=== PATIENT | female | born 1955 | race African-American/Black ===

== ENCOUNTER 2017-02-27 11:53 | Emergency (ER) | payer MEDICAID ==
[~2017-02-27] VITALS: Ht 175.3 cm; Wt 54.4 kg
[2017-02-27] MEDS ORDERED: ASPIR-LOW81 MG ORAL (12:30)
[2017-02-27] MEDS ORDERED: [UNRECOGNIZED DRUG - REMARK] SQ (12:30)
[2017-02-27 12:31] VITALS: BP 123/84
[2017-02-27] MEDS ORDERED: Tylenol #3 tab (300mg/30mg) ORAL ONE (12:45)
[2017-02-27] MEDS ORDERED: XOLIDO118 ML TP (12:52)
[2017-02-27] MEDS ORDERED: ACETAMINOPHEN-1 EAC1 ORAL (12:52)
[2017-02-27] MEDS ORDERED: ZOVIRAX800 MG ORAL (12:52)
[2017-02-27 13:17] VITALS: BP 159/93
--- NOTE | 2017-02-27 16:30 | Emergency Room Report ---
History of Present Illness General Chief Complaint: Skin Rash/Abscess Source: Patient Present Illness HPI The patient is a 61-year-old female presenting for rash. She states that she noticed pain and a rash to the left abdomen and back 5 days prior. It has not been worsening pain is an 8/10 burning sensation and does not radiate. Worse with light touch. She has applied calamine lotion which has not helped. She admits to a history of chickenpox as a child. She denies any other symptoms including nausea, vomiting, fever, chills Allergies: Coded Allergies: No Known Allergies (Unverified , 02/27/17) Patient History Past Medical History: see triage record Pertinent Family History: none Reviewed Nursing Documentation: PMH: Agreed, PSxH: Agreed Nursing Documentation-PMH Hx Diabetes: Yes Review of Systems All Other Systems: negative except mentioned in HPI Physical Exam Vital Signs Date Time Temp Pulse Resp B/P (MAP) Pulse Ox O2 Delivery O2 Flow Rate FiO2 02/27/17 12:23 98.2 86 16 123/84 95 Room Air Sp02 EP Interpretation: reviewed, normal General Appearance: no apparent distress, alert, GCS 15, non-toxic Head: normocephalic, atraumatic Eyes: bilateral eye normal inspection, bilateral eye PERRL ENT: hearing grossly normal, normal pharynx, no angioedema, normal voice Neck: full range of motion, supple/symm/no masses Respiratory: chest non-tender, lungs clear, normal breath sounds, speaking full sentences Musculoskeletal: back normal, gait/station normal, normal range of motion Neurologic: alert, oriented x3, responsive, motor strength/tone normal, sensory intact, speech normal Psychiatric: judgement/insight normal, memory normal, mood/affect normal, no suicidal/homicidal ideation Skin: other - vesicles of the L abdomen and L back. Does not cross midline. TTP. Lymphatic: no adenopathy Medical Decision Making PA Attestation Dr. Larios is my supervising physician. Patient management was discussed with my supervising physician Diagnostic Impression: Primary Impression: Shingles outbreak Qualified Codes: B02.9 - Zoster without complications ER Course The patient is a 61-year-old female presenting for possible shingles outbreak Ddx considered include but not limited to insect bite, shingles, contact dermatitis, eczema, cellulitis, among others PE: Multiple vesicles which extend from the left abdomen to the left back. Tenderness with soft palpation. Does not cross midline. The patient will be treated with a prescription for acyclovir, pain medication, and topical lidocaine. ER precautions are given Last Vital Signs Date Time Temp Pulse Resp B/P (MAP) Pulse Ox O2 Delivery O2 Flow Rate FiO2 02/27/17 13:17 71 18 159/93 100 Room Air 02/27/17 12:31 98.2 Status: improved Disposition: HOME, SELF-CARE Condition: Improved Scripts Acyclovir* (ZOVIRAX*) 800 Mg Tablet 800 MG ORAL Q4HR for 7 Days, CAP 0 Refills Prov: SUPIRYA VILLANUEVA.A. 02/27/17 Lidocaine HCl (Xolido) 118 Ml Cream.ml. 1 APPLIC TP TID, #118 ML Prov: SUPRIYA VILLANUEVA P.A. 02/27/17 Acetaminophen With Codeine (T#3) (TYLENOL #3 TAB*) Y Tab 1 TAB ORAL Q6HR Y for For Pain, #15 TAB Prov: SUPRIYA VILLANUEVA.A. 02/27/17 Patient Instructions: Shingles Additional Instructions: I discussed my findings with the patient. All questions and concerns have been answered. Treatment and medication compliance have been addressed. I advised the patient that they need to follow up with PMD in 3-5 days. Return to ED if symptoms worsen, new symptoms arise, or if needed for any reason. Patient verbalized understanding of discharge instructions. SUPRIYA VILLANUEVA Feb 27, 2017 16:30
== END 2017-02-27 13:19 | disposition home or self-care (01) ==
LOC: EMR 12:20
DX: B02.9 Zoster without complications (principal); E11.9 Type 2 diabetes mellitus without complications
CPT/HCPCS: 99284

== ENCOUNTER 2018-07-01 18:26 | Inpatient (IN) | payer MEDICAID ==
[~2018-07-01] VITALS: Ht 170.2 cm; Wt 52.2 kg
[~2018-07-01 18:26] MED LIST: ACETAMINOPHEN-1 EAC1 ORAL; ASPIR-LOW81 MG ORAL; XOLIDO118 ML TP; ZOVIRAX800 MG ORAL; [UNRECOGNIZED DRUG - REMARK] SQ
[2018-07-01 18:41] VITALS: BP 153/81
--- NOTE | 2018-07-01 19:22 | Emergency Room Report ---
History of Present Illness General Chief Complaint: Chest Pain Source: Patient Present Illness HPI The patient presents with chest pain. Somewhat exertional. She rates it at 8/ 10 at this time. She feels it might be related to anxiety and she's been stressed over the holidays. She ran out of her Valium. She denies any fevers, chills, productive cough or wheezing. She does smoke and she is also diabetic. She also complains about intermittent headaches. She never gets headaches but says that she's had sharp pain is 7/10. There is no neck stiffness. She denies any nausea, vomiting, diarrhea, dysuria or rashes. Pain is somewhat exertional. Risk factors for cardiac disease: diabetes, smoking Headache, anxiety, abdominal pain. Allergies: Coded Allergies: No Known Allergies (Unverified , 02/27/17) Patient History Past Medical History: see triage record Social History: Reports: smoking Social History Narrative at home Reviewed Nursing Documentation: PMH: Agreed; PSxH: Agreed Nursing Documentation-PMH Past Medical History: No History, Except For Hx Cardiac Problems: No Hx Hypertension: No Hx Pacemaker: No Hx Asthma: No Hx COPD: Yes Hx Diabetes: Yes Hx Cancer: No Hx Gastrointestinal Problems: No Hx Dialysis: No History Of Psychiatric Problem: Yes - anxiety Hx Neurological Problems: No Hx Cerebrovascular Accident: No Hx Seizures: No Review of Systems All Other Systems: negative except mentioned in HPI Physical Exam Vital Signs Date Time Temp Pulse Resp B/P (MAP) Pulse Ox O2 Delivery O2 Flow Rate FiO2 07/01/18 18:31 98.4 81 16 135/70 89 Room Air 07/01/18 18:41 96 Sp02 EP Interpretation: reviewed, normal General Appearance: well appearing, no apparent distress, GCS 15 Head: normocephalic Eyes: bilateral eye normal inspection, bilateral eye PERRL ENT: moist mucus membranes - No teeth upper gums Neck: supple Respiratory: chest non-tender, lungs clear, normal breath sounds Cardiovascular #1: regular rate, rhythm, no edema Cardiovascular #2: 2+ radial (R) Gastrointestinal: normal inspection, normal bowel sounds, non tender, no mass, non-distended Genitourinary: no CVA tenderness Musculoskeletal: back normal, gait/station normal, normal range of motion Neurologic: alert, oriented x3, grossly normal Psychiatric: anxious Skin: normal inspection, warm/dry Medical Decision Making Diagnostic Impression: Primary Impression: Chest pain Qualified Codes: R07.9 - Chest pain, unspecified Additional Impressions: Diabetes Qualified Codes: E11.8 - Type 2 diabetes mellitus with unspecified complications Anxiety Headache Qualified Codes: R51 - Headache ER Course Patient presents with substernal chest pressure. Risk factors include diabetes and smoking. Differential includes acute myocardial infarction, acute coronary syndrome, anxiety, GERD amongst others. Evaluation will be EKG, chest x-ray and labs. She'll be treated with aspirin, morphine, Zofran and Ativan. She'll be placed on the child monitor. EKG with normal sinus rhythm and nonspecific ST-T wave changes with a rate of 65. CBC low WBC. CMP with elevated glucose. Troponin neg. CXR no infiltrates , see below. Improved with treatment. Patient improved with treatment. Concern over ACS with significant risk factors. Admit telemetry Dr. Alfaro. Laboratory Tests Test 07/01/18 17:17 07/02/18 06:00 White Blood Count 5.1 K/UL (4.8-10.8) 4.5 K/UL (4.8-10.8) L Red Blood Count 4.81 M/UL (4.20-5.40) 4.77 M/UL (4.20-5.40) Hemoglobin 13.5 G/DL (12.0-16.0) 13.4 G/DL (12.0-16.0) Hematocrit 42.6 % (37.0-47.0) 42.3 % (37.0-47.0) Mean Corpuscular Volume 88 FL (80-99) 89 FL (80-99) Mean Corpuscular Hemoglobin 28.1 PG (27.0-31.0) 28.1 PG (27.0-31.0) Mean Corpuscular Hemoglobin Concent 31.8 G/DL (32.0-36.0) L 31.7 G/DL (32.0-36.0) L Red Cell Distribution Width 12.5 % (11.6-14.8) 12.7 % (11.6-14.8) Platelet Count 260 K/UL (150-450) 265 K/UL (150-450) Mean Platelet Volume 7.1 FL (6.5-10.1) 6.6 FL (6.5-10.1) Neutrophils (%) (Auto) 35.7 % (45.0-75.0) L % (45.0-75.0) Lymphocytes (%) (Auto) 52.9 % (20.0-45.0) H % (20.0-45.0) Monocytes (%) (Auto) 5.4 % (1.0-10.0) % (1.0-10.0) Eosinophils (%) (Auto) 4.7 % (0.0-3.0) H % (0.0-3.0) Basophils (%) (Auto) 1.3 % (0.0-2.0) % (0.0-2.0) Prothrombin Time 10.2 SEC (9.30-11.50) Prothrombin Time INR 1.0 (0.9-1.1) PTT 26 SEC (23-33) Sodium Level 139 MMOL/L (136-145) 140 MMOL/L (136-145) Potassium Level 5.1 MMOL/L (3.5-5.1) 4.6 MMOL/L (3.5-5.1) Chloride Level 102 MMOL/L (98-107) 103 MMOL/L (98-107) Carbon Dioxide Level 29 MMOL/L (21-32) 31 MMOL/L (21-32) Anion Gap 8 mmol/L (5-15) 6 mmol/L (5-15) Blood Urea Nitrogen 19 mg/dL (7-18) H 18 mg/dL (7-18) Creatinine 0.7 MG/DL (0.55-1.30) 0.7 MG/DL (0.55-1.30) Estimate Glomerular Filtration Rate > 60 mL/min (>60) > 60 mL/min (>60) Glucose Level 306 MG/DL (74-106) H 242 MG/DL (74-106) H Calcium Level 9.7 MG/DL (8.5-10.1) 9.4 MG/DL (8.5-10.1) Total Bilirubin 0.4 MG/DL (0.2-1.0) Aspartate Amino Transferase (AST) 28 U/L (15-37) Alanine Aminotransferase (ALT) 38 U/L (12-78) Alkaline Phosphatase 110 U/L (46-116) Total Creatine Kinase 187 U/L (26-308) Troponin I 0.000 ng/mL (0.000-0.056) 0.017 ng/mL (0.000-0.056) Pro-B-Type Natriuretic Peptide 14 pg/mL (0-125) Total Protein 7.4 G/DL (6.4-8.2) Albumin 3.4 G/DL (3.4-5.0) Globulin 4.0 g/dL Albumin/Globulin Ratio 0.9 (1.0-2.7) L Differential Total Cells Counted 100 Neutrophils % (Manual) 23 % (45-75) L Lymphocytes % (Manual) 56 % (20-45) H Monocytes % (Manual) 14 % (1-10) H Eosinophils % (Manual) 7 % (0-3) H Basophils % (Manual) 0 % (0-2) Band Neutrophils 0 % (0-8) Platelet Estimate Adequate Platelet Morphology Normal EKG Diagnostic Results Rate: normal Rhythm: NSR ST Segments: no acute changes Rhythm Strip Diag. Results EP Interpretation: yes Rhythm: NSR, no PVC's, no ectopy Chest X-Ray Diagnostic Results Chest X-Ray Diagnostic Results : Chest X-Ray Ordered: Yes # of Views/Limited/Complete: 1 View Indication: Chest Pain Interpretation: no consolidation, no effusion, no pneumothorax, other - blunting L CPA, hilar prominence, COPD Impression: Other Electronically Signed by: Nicolas Barbosa MD Last Vital Signs Date Time Temp Pulse Resp B/P (MAP) Pulse Ox O2 Delivery O2 Flow Rate FiO2 07/02/18 12:09 73 07/02/18 12:00 97.6 18 111/64 (80) 96 07/02/18 09:00 Room Air 07/02/18 00:49 2.0 07/01/18 22:00 95 Status: improved Disposition: ADMITTED INPATIENT Condition: Serious Nicolas Cruz MD Jul 01, 2018 19:22
[2018-07-01] MEDS ORDERED: Morphine Sulfate 4mg/ml Inj (IV/IM USE ONLY) IVP ONE (19:30)
[2018-07-01] MEDS ORDERED: LORazepam Inj 2mg/ml 1ml IV ONE (19:30)
[2018-07-01 19:33] LABS: BASOPHILS % (AUTO) 1.3 % (0.0-2.0); EOSINOPHILS % (AUTO) 4.7 % (0.0-3.0); HEMATOCRIT 42.6 % (37.0-47.0); HEMOGLOBIN 13.5 G/DL (12.0-16.0); LYMPHOCYTES % (AUTO) 52.9 % (20.0-45.0); MEAN CORPUSCULAR VOLUME 88 FL (80-99); MONOCYTES % (AUTO) 5.4 % (1.0-10.0); NEUTROPHILS % (AUTO) 35.7 % (45.0-75.0); PLATELET COUNT 260 K/UL (150-450); RED BLOOD COUNT 4.81 M/UL (4.20-5.40); RED CELL DISTRIBUTION WIDTH 12.5 % (11.6-14.8); WHITE BLOOD COUNT 5.1 K/UL (4.8-10.8)
[2018-07-01 19:35] LABS: ANION GAP 8 mmol/L (5-15); BLOOD UREA NITROGEN 19 mg/dL (7-18); CALCIUM 9.7 MG/DL (8.5-10.1); CARBON DIOXIDE 29 MMOL/L (21-32); CHLORIDE 102 MMOL/L (98-107); CREATININE 0.7 MG/DL (0.55-1.30); POTASSIUM 5.1 MMOL/L (3.5-5.1); SODIUM 139 MMOL/L (136-145)
[2018-07-01 19:46] LABS: ALANINE AMINOTRANSFERASE 38 U/L (12-78); ALBUMIN 3.4 G/DL (3.4-5.0); ALBUMIN/GLOBULIN RATIO 0.9 (1.0-2.7); ALKALINE PHOSPHATASE 110 U/L (46-116); ASPARTATE AMINO TRANSFERASE 28 U/L (15-37); BILIRUBIN,TOTAL 0.4 MG/DL (0.2-1.0); CREATINE KINASE 187 U/L (26-308)
[2018-07-01] MEDS ORDERED: Nitroglycerin Subl 0.4mg tab SL PRN (21:00)
[2018-07-01 21:50] VITALS: BP 149/87
[2018-07-01 22:45] VITALS: BP_SYST 145; BP_SYST 149; BP_DIAS 77; BP_DIAS 80
[2018-07-02 04:00] VITALS: BP 137/81
[2018-07-02] MEDS: NovoLOG Insulin Flexpen SUBQ SCH ×4 (06:22→20:44)
[2018-07-02 06:40] LABS: HEMATOCRIT 42.3 % (37.0-47.0); HEMOGLOBIN 13.4 G/DL (12.0-16.0); MEAN CORPUSCULAR VOLUME 89 FL (80-99); PLATELET COUNT 265 K/UL (150-450); RED BLOOD COUNT 4.77 M/UL (4.20-5.40); RED CELL DISTRIBUTION WIDTH 12.7 % (11.6-14.8); WHITE BLOOD COUNT 4.5 K/UL (4.8-10.8)
[2018-07-02 06:58] LABS: ANION GAP 6 mmol/L (5-15); BLOOD UREA NITROGEN 18 mg/dL (7-18); CALCIUM 9.4 MG/DL (8.5-10.1); CARBON DIOXIDE 31 MMOL/L (21-32); CHLORIDE 103 MMOL/L (98-107); CREATININE 0.7 MG/DL (0.55-1.30); POTASSIUM 4.6 MMOL/L (3.5-5.1); SODIUM 140 MMOL/L (136-145)
[2018-07-02 08:00] VITALS: BP 122/71
[2018-07-02] MEDS: Metoprolol Tartrate 12.5mg TAB ORAL SCH ×2 (08:51→20:43)
[2018-07-02] MEDS: Enoxaparin 40mg Inj SUBQ SCH (08:51)
[2018-07-02] MEDS: Aspirin Baby 81mg ORAL SCH (08:51)
--- NOTE | 2018-07-02 11:25 | Diagnostic Imaging Report ---
Indication: Chest pain Technique: XRAY Chest 1v Comparison: None Findings: There is hyperinflation with flattening of the diaphragms. These findings are suggestive of COPD. There is biapical scarring. There is blunting of the bilateral costophrenic sulci, right greater than left, which may be related to chronic pleural thickening versus small pleural effusions. There is no evidence of pneumothorax. No evidence of pulmonary edema. Heart size within normal limits. Atherosclerotic calcifications noted in the aorta. There is hilar prominence likely related to enlarged pulmonary arteries. Further evaluation with CT can be obtained as clinically indicated. Impression: * Findings suggestive of COPD. Correlate clinically. * Blunting of the lateral costophrenic sulci may be related to trace effusions versus chronic pleural thickening. * Bilateral hilar prominence may be related to ectatic vasculature. Further evaluation with CT of the chest can be obtained as clinically indicated. Study obtained via the emergency department however patient admitted to the hospital at time of dictation of the final report.
--- NOTE | 2018-07-02 11:32 | Cardiac Electrophysiology PN ---
Subjective Subjective [id number] Objective Last 24 Hour Vital Signs Date Time Temp Pulse Resp B/P (MAP) Pulse Ox O2 Delivery O2 Flow Rate FiO2 07/02/18 08:51 79 122/71 07/02/18 08:00 98.0 79 18 122/71 (88) 99 07/02/18 07:41 69 07/02/18 04:00 97.7 59 20 137/81 (99) 99 07/02/18 04:00 62 07/02/18 00:49 Nasal Cannula 2.0 07/02/18 00:00 76 07/01/18 22:45 98.2 76 20 145/80 (101) 97 07/01/18 22:00 97.9 75 20 149/87 95 Nasal Cannula 2.0 95 78 07/01/18 21:50 97.9 78 25 149/87 95 Nasal Cannula 2.0 95 07/01/18 18:41 97.6 75 25 153/81 96 Room Air 07/01/18 18:41 75 25 Room Air 96 07/01/18 18:31 98.4 81 16 135/70 89 Room Air Intake and Output 07/01/18 07/02/18 19:00 07:00 # Voids 2 Laboratory Tests Test 07/01/18 17:17 07/02/18 06:00 White Blood Count 5.1 K/UL (4.8-10.8) 4.5 K/UL (4.8-10.8) L Red Blood Count 4.81 M/UL (4.20-5.40) 4.77 M/UL (4.20-5.40) Hemoglobin 13.5 G/DL (12.0-16.0) 13.4 G/DL (12.0-16.0) Hematocrit 42.6 % (37.0-47.0) 42.3 % (37.0-47.0) Mean Corpuscular Volume 88 FL (80-99) 89 FL (80-99) Mean Corpuscular Hemoglobin 28.1 PG (27.0-31.0) 28.1 PG (27.0-31.0) Mean Corpuscular Hemoglobin Concent 31.8 G/DL (32.0-36.0) L 31.7 G/DL (32.0-36.0) L Red Cell Distribution Width 12.5 % (11.6-14.8) 12.7 % (11.6-14.8) Platelet Count 260 K/UL (150-450) 265 K/UL (150-450) Mean Platelet Volume 7.1 FL (6.5-10.1) 6.6 FL (6.5-10.1) Neutrophils (%) (Auto) 35.7 % (45.0-75.0) L % (45.0-75.0) Lymphocytes (%) (Auto) 52.9 % (20.0-45.0) H % (20.0-45.0) Monocytes (%) (Auto) 5.4 % (1.0-10.0) % (1.0-10.0) Eosinophils (%) (Auto) 4.7 % (0.0-3.0) H % (0.0-3.0) Basophils (%) (Auto) 1.3 % (0.0-2.0) % (0.0-2.0) Prothrombin Time 10.2 SEC (9.30-11.50) Prothromb Time International Ratio 1.0 (0.9-1.1) Activated Partial Thromboplast Time 26 SEC (23-33) Sodium Level 139 MMOL/L (136-145) 140 MMOL/L (136-145) Potassium Level 5.1 MMOL/L (3.5-5.1) 4.6 MMOL/L (3.5-5.1) Chloride Level 102 MMOL/L (98-107) 103 MMOL/L (98-107) Carbon Dioxide Level 29 MMOL/L (21-32) 31 MMOL/L (21-32) Anion Gap 8 mmol/L (5-15) 6 mmol/L (5-15) Blood Urea Nitrogen 19 mg/dL (7-18) H 18 mg/dL (7-18) Creatinine 0.7 MG/DL (0.55-1.30) 0.7 MG/DL (0.55-1.30) Estimat Glomerular Filtration Rate > 60 mL/min (>60) > 60 mL/min (>60) Glucose Level 306 MG/DL (74-106) H 242 MG/DL (74-106) H Calcium Level 9.7 MG/DL (8.5-10.1) 9.4 MG/DL (8.5-10.1) Total Bilirubin 0.4 MG/DL (0.2-1.0) Aspartate Amino Transf (AST/SGOT) 28 U/L (15-37) Alanine Aminotransferase (ALT/SGPT) 38 U/L (12-78) Alkaline Phosphatase 110 U/L (46-116) Total Creatine Kinase 187 U/L (26-308) Troponin I 0.000 ng/mL (0.000-0.056) 0.017 ng/mL (0.000-0.056) Pro-B-Type Natriuretic Peptide 14 pg/mL (0-125) Total Protein 7.4 G/DL (6.4-8.2) Albumin 3.4 G/DL (3.4-5.0) Globulin 4.0 g/dL Albumin/Globulin Ratio 0.9 (1.0-2.7) L Differential Total Cells Counted 100 Neutrophils % (Manual) 23 % (45-75) L Lymphocytes % (Manual) 56 % (20-45) H Monocytes % (Manual) 14 % (1-10) H Eosinophils % (Manual) 7 % (0-3) H Basophils % (Manual) 0 % (0-2) Band Neutrophils 0 % (0-8) Platelet Estimate Adequate Platelet Morphology Normal Buster Mena MD Jul 02, 2018 11:32
[2018-07-02 12:00] VITALS: BP 111/64
[2018-07-02] MEDS ORDERED: Lexiscan 0.4mg/5ml syringe IV SCH (12:00)
[2018-07-02] MEDS ORDERED: Lexiscan 0.4mg/5ml syringe IV PRN (13:15)
[2018-07-02] MEDS ORDERED: Albuterol 90mcg Inhaler 8gm INH PRN (15:00)
--- NOTE | 2018-07-02 15:30 | History and Physical Report ---
DATE OF ADMISSION: 07/01/2018 REASON FOR CONSULTATION: 1. Hypertension. 2. Acute coronary syndrome, chest pain. HISTORY OF PRESENT ILLNESS: The patient is a 62-year-old female who presented overnight for further evaluation and care of exertional chest pain. The patient stated that her pain started approximately two to three days ago. Waxing and waning in nature with pressure to the chest. No radiation down the arm. The patient states she had this in the past and it was felt secondary to anxiety. No nausea, vomiting, or diarrhea. ALLERGIES: No known drug allergies. PAST MEDICAL HISTORY: 1. Shingles. 2. Diabetes mellitus. 3. Hypertension. PAST SURGICAL HISTORY: Noncontributory FAMILY HISTORY: Positive for hypertension and diabetes. SOCIAL HISTORY: The patient denies any tobacco, alcohol, or illicit drug use. REVIEW OF SYSTEMS: NEUROLOGIC: The patient denies headache, change in vision, syncope, or presyncopal episodes. CARDIOVASCULAR: The patient was having chest pain. No palpitations. PULMONARY: No difficulty breathing, productive cough, or sputum. GASTROINTESTINAL/GENITOURINARY: No change in urinary or bowel habits. No nausea, vomiting, or diarrhea. ENDOCRINOLOGY: No night sweats, fevers, or chills. MUSCULOSKELETAL: The patient is feeling weak, tired and fatigue. LABORATORY DATA: Labs dated July 02, 2018, white cell count 4.5, hemoglobin 13.4, and platelet count 265,000. Sodium 140, potassium 4.6, BUN 18, and creatinine 0.7. Calcium 9.4. Troponin 0.017. PHYSICAL EXAMINATION: VITAL SIGNS: Blood pressure 137/81, 99% oxygen saturation on room air, pulse 62, and temperature 97.7 degrees. GENERAL: The patient is awake and alert, not otherwise in distress. HEENT: Extraocular muscles are intact. No lymphadenopathy noted. CARDIOVASCULAR: S1, S2. Regular rate. No rubs or gallops. PULMONARY: Clear to auscultation bilaterally. No rales, rhonchi, or wheezes. ABDOMEN: Nondistended and nontender. EXTREMITIES: No edema. ASSESSMENT AND PLAN: 1. Diabetes mellitus. The patient has been placed on Accu-Cheks and insulin sliding scale. 2. Acute coronary syndrome with chest pain. Troponins negative. Cardiology to evaluate for stress testing prior to discharge. 3. Hypertension. Metoprolol has been initiated. 4. Deep venous thrombosis prophylaxis with Lovenox. Elian Chong MD DR: NEYMAR JOB#: [id number] CC:
--- NOTE | 2018-07-02 15:45 | History and Physical Report ---
DATE OF ADMISSION: 07/01/2018 REASON FOR ADMISSION: Chest pain. HISTORY OF PRESENT ILLNESS: The patient is a 62-year-old female who was admitted overnight for further evaluation and care of the onset of new chest pain. The patient stated it was pressure-like along with pins and needles in her chest. No radiation down her arm, rating 8 to 10 out of 10. The patient states she had this feeling in the past, which resulted from anxiety. The patient states her chest pain started approximately two to three days ago. No nausea, vomiting, or diarrhea. ALLERGIES: No known drug allergies. PAST MEDICAL HISTORY: 1. Hypertension. 2. Diabetes mellitus. 3. Anxiety. PAST SURGICAL HISTORY: Noncontributory. SOCIAL HISTORY: No tobacco, alcohol, or illicit drug use. FAMILY HISTORY: Positive for hypertension and diabetes. PHYSICAL EXAMINATION: VITAL SIGNS: Blood pressure 137/81, 99% oxygen saturation on room air, pulse 62, and temperature 97.7. GENERAL: The patient is awake and alert, not otherwise in distress. HEENT: Extraocular muscles are intact. No lymphadenopathy noted. Oropharyngeal mucosa is clear and dry. CARDIOVASCULAR: S1 and S2. No rubs or gallops. PULMONARY: Clear to auscultation bilaterally. No rales, rhonchi, or wheezes. ABDOMEN: Nondistended and nontender. EXTREMITIES: No edema noted. LABORATORY DATA: Labs dated July 02, 2018, sodium 140, potassium 4.6, BUN 18, and creatinine 0.7. White cell count 4.5, hemoglobin 13.4, and platelet count 265,000. ASSESSMENT AND PLAN: 1. Hypertension. At this time, patient was initiated on metoprolol 12.5 mg twice a day. 2. Acute coronary syndrome with chest pain. Troponins negative x2. Cardiology has been consulted. Aspirin and beta pushpa have been initiated. Antihyperlipidemics will be deferred to Cardiology. 3. Diabetes mellitus. Continue insulin sliding scale with Accu-Cheks. 4. Deep venous thrombosis prophylaxis with Lovenox. Elian Chong MD DR: NEYMAR JOB#: [id number] CC:
[2018-07-02 16:34] VITALS: BP 159/75
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
--- NOTE | 2018-07-02 19:00 | Consultation ---
DATE OF CONSULTATION: 07/02/2018 PULMONARY CONSULTATION CONSULTING PHYSICIAN: Preston Bansal M.D. HISTORY OF PRESENT ILLNESS: This is a very pleasant 62-year-old female, who came to the hospital with chest pain. She also reported cough and shortness of breath. The patient is a smoker and she also reports diabetes. She reports headaches and she also reports anxiety. She has run out of Valium. PAST MEDICAL HISTORY: Notable for chronic tobacco use, underlying COPD, diabetes mellitus, anxiety. MEDICATIONS: Her medications at this time include Ativan, Tylenol, albuterol, aspirin, subcutaneous Lovenox, Pepcid, insulin sliding scale, metoprolol, Zofran. REVIEW OF SYSTEMS: Denies any headaches, hematemesis, melena, hematochezia, or weight loss. PHYSICAL EXAMINATION: GENERAL: Reveals a 62-year-old female. HEENT: Unremarkable. LUNGS: Clear breath sounds bilaterally. ABDOMEN: Soft. NEUROLOGIC: Nonfocal. DIAGNOSTIC DATA: X-ray of chest shows bilateral hilar prominence and hyperinflation. LABORATORY DATA: Laboratory testing is otherwise unremarkable with normal CBC and BMP. Glucose 242. Troponins negative. IMPRESSION: 1. Rule out ACS. 2. COPD. 3. Anxiety. RECOMMENDATION: I agree with admission and care. I know the patient is scheduled for Lexiscan stress test, I concur. We will follow as tiltrotor crew chief and order oxygen and pulmonary hygiene. Preston Bansal M.D. DR: Charline JOB#: [id number] CC:
[2018-07-02 20:00] VITALS: BP 128/74
[2018-07-03] VITALS: BP 138/81
[2018-07-03 04:00] VITALS: BP 138/75
[2018-07-03] MEDS: NovoLOG Insulin Flexpen SUBQ SCH ×3 (05:52→21:06)
[2018-07-03 07:07] LABS: BASOPHILS % (AUTO) 0.8 % (0.0-2.0); EOSINOPHILS % (AUTO) 3.2 % (0.0-3.0); HEMATOCRIT 39.7 % (37.0-47.0); HEMOGLOBIN 12.7 G/DL (12.0-16.0); MEAN CORPUSCULAR VOLUME 88 FL (80-99); MONOCYTES % (AUTO) 4.9 % (1.0-10.0); NEUTROPHILS % (AUTO) 72.1 % (45.0-75.0); PLATELET COUNT 233 K/UL (150-450); RED BLOOD COUNT 4.52 M/UL (4.20-5.40); RED CELL DISTRIBUTION WIDTH 12.1 % (11.6-14.8); WHITE BLOOD COUNT 8.9 K/UL (4.8-10.8)
[2018-07-03 07:32] LABS: ANION GAP 8 mmol/L (5-15); BLOOD UREA NITROGEN 13 mg/dL (7-18); CALCIUM 8.8 MG/DL (8.5-10.1); CARBON DIOXIDE 25 MMOL/L (21-32); CHLORIDE 100 MMOL/L (98-107); CREATININE 0.7 MG/DL (0.55-1.30); POTASSIUM 4.5 MMOL/L (3.5-5.1); SODIUM 133 MMOL/L (136-145)
[2018-07-03 08:00] VITALS: BP 106/77
[2018-07-03] MEDS: Enoxaparin 40mg Inj SUBQ SCH (09:00)
[2018-07-03] MEDS: Aspirin Baby 81mg ORAL SCH (09:00)
[2018-07-03] MEDS: Metoprolol Tartrate 12.5mg TAB ORAL SCH ×2 (09:00→21:00)
--- NOTE | 2018-07-03 09:00 | Nephrology Progress Note ---
Assessment/Plan Assessment/Plan A/P 1) ACS/Chest pain- Trop I neg, NE ruled out - DC today post stress test if negative 2) Anxiety- chronic per oupt mgmt 3) DVT prophylaxis- lovenox 4) SOB- per pulm DC today post stress test Subjective Date patient seen: Jul 03, 2018 Time patient seen: 08:57 ROS Limited/Unobtainable: No Allergies: Coded Allergies: No Known Allergies (Unverified , 02/27/17) Subjective Patient chest pain free Objective Last 24 Hour Vital Signs Date Time Temp Pulse Resp B/P (MAP) Pulse Ox O2 Delivery O2 Flow Rate FiO2 07/03/18 04:00 90 07/03/18 04:00 99.0 91 20 138/75 (96) 94 07/03/18 00:00 97.7 94 20 138/81 (100) 98 07/03/18 00:00 80 07/02/18 22:35 100 Nasal Cannula 2.0 28 07/02/18 22:35 100 20 Room Air 2.0 28 07/02/18 21:00 Room Air 07/02/18 20:43 90 128/74 07/02/18 20:00 91 07/02/18 20:00 98.1 90 20 128/74 (92) 98 07/02/18 16:34 97.0 80 20 159/75 (103) 97 07/02/18 15:14 81 07/02/18 12:09 73 07/02/18 12:00 97.6 80 18 111/64 (80) 96 07/02/18 09:00 Room Air Intake and Output 07/02/18 07/03/18 19:00 07:00 Intake Total 705 ml 600 ml Balance 705 ml 600 ml Intake Oral 480 ml IV Total 225 ml 600 ml # Voids 3 6 Laboratory Tests 07/03/18 05:20: White Blood Count 8.9#, Red Blood Count 4.52, Hemoglobin 12.7, Hematocrit 39.7, Mean Corpuscular Volume 88, Mean Corpuscular Hemoglobin 28.1, Mean Corpuscular Hemoglobin Concent 32.0, Red Cell Distribution Width 12.1, Platelet Count 233, Mean Platelet Volume 6.9, Neutrophils (%) (Auto) 72.1, Lymphocytes (%) (Auto) 19.0L, Monocytes (%) (Auto) 4.9, Eosinophils (%) (Auto) 3.2H, Basophils (%) ( Auto) 0.8, Sodium Level 133L, Potassium Level 4.5, Chloride Level 100, Carbon Dioxide Level 25, Anion Gap 8, Blood Urea Nitrogen 13, Creatinine 0.7, Estimat Glomerular Filtration Rate > 60, Glucose Level 295H, Calcium Level 8.8 Height (Feet): 5 Height (Inches): 7.00 Weight (Pounds): 115 General Appearance: no apparent distress, alert EENT: normal ENT inspection Neck: normal alignment, supple Cardiovascular: normal rate, regular rhythm Respiratory/Chest: lungs clear, normal breath sounds Abdomen: non tender, soft Edema: no edema noted Arm (L), no edema noted Arm (R), no edema noted Leg (L), no edema noted Leg (R), no edema noted Pedal (L), no edema noted Pedal (R), no edema noted Generalized Elian Chong MD Jul 03, 2018 09:00
--- NOTE | 2018-07-03 09:02 | Discharge Instructions ---
Discharge Instructions Discharge Instructions Services at Discharge: day care Diet: 2 GM sodium (low sodium) Resume Normal Activity?: Yes Activity: light activity For Congestive Heart Failure Reminder Report to your physician any weight gain of 5 pounds or more in one week. Elian Chong MD Jul 03, 2018 09:02
--- NOTE | 2018-07-03 09:04 | Nephrology Progress Note ---
Assessment/Plan Assessment/Plan A/P 1) ACS/Chest pain- Trop I neg, PR ruled out - DC today post stress test if negative 2) Anxiety- chronic per oupt mgmt 3) DVT prophylaxis- lovenox 4) SOB- per pulm DC today post stress test Subjective Date patient seen: Jul 03, 2018 Time patient seen: 09:03 ROS Limited/Unobtainable: No Allergies: Coded Allergies: No Known Allergies (Unverified , 02/27/17) Subjective Patient chest pain free Objective Last 24 Hour Vital Signs Date Time Temp Pulse Resp B/P (MAP) Pulse Ox O2 Delivery O2 Flow Rate FiO2 07/03/18 04:00 90 07/03/18 04:00 99.0 91 20 138/75 (96) 94 07/03/18 00:00 97.7 94 20 138/81 (100) 98 07/03/18 00:00 80 07/02/18 22:35 100 Nasal Cannula 2.0 28 07/02/18 22:35 100 20 Room Air 2.0 28 07/02/18 21:00 Room Air 07/02/18 20:43 90 128/74 07/02/18 20:00 91 07/02/18 20:00 98.1 90 20 128/74 (92) 98 07/02/18 16:34 97.0 80 20 159/75 (103) 97 07/02/18 15:14 81 07/02/18 12:09 73 07/02/18 12:00 97.6 80 18 111/64 (80) 96 Intake and Output 07/02/18 07/03/18 19:00 07:00 Intake Total 705 ml 600 ml Balance 705 ml 600 ml Intake Oral 480 ml IV Total 225 ml 600 ml # Voids 3 6 Laboratory Tests 07/03/18 05:20: White Blood Count 8.9#, Red Blood Count 4.52, Hemoglobin 12.7, Hematocrit 39.7, Mean Corpuscular Volume 88, Mean Corpuscular Hemoglobin 28.1, Mean Corpuscular Hemoglobin Concent 32.0, Red Cell Distribution Width 12.1, Platelet Count 233, Mean Platelet Volume 6.9, Neutrophils (%) (Auto) 72.1, Lymphocytes (%) (Auto) 19.0L, Monocytes (%) (Auto) 4.9, Eosinophils (%) (Auto) 3.2H, Basophils (%) ( Auto) 0.8, Sodium Level 133L, Potassium Level 4.5, Chloride Level 100, Carbon Dioxide Level 25, Anion Gap 8, Blood Urea Nitrogen 13, Creatinine 0.7, Estimat Glomerular Filtration Rate > 60, Glucose Level 295H, Calcium Level 8.8 Height (Feet): 5 Height (Inches): 7.00 Weight (Pounds): 115 General Appearance: no apparent distress, alert EENT: normal ENT inspection Neck: normal alignment, supple Cardiovascular: normal rate, regular rhythm Respiratory/Chest: lungs clear, normal breath sounds Abdomen: non tender, soft Edema: no edema noted Arm (L), no edema noted Arm (R), no edema noted Leg (L), no edema noted Leg (R), no edema noted Pedal (L), no edema noted Pedal (R), no edema noted Generalized Elian Chong MD Jul 03, 2018 09:04
--- NOTE | 2018-07-03 10:33 | Cardiac Electrophysiology PN ---
Assessment/Plan Assessment/Plan 1. Atypical chest pain. This is likely part of her anxiety. EKG is nonischemic and she was already ruled out for myocardial infarction. The patient is already on aspirin and metoprolol. EF 55%. Dobutamine echo pending today 2. Hypertension, stable on metoprolol 12.5 mg b.i.d. 3. Anxiety disorder. 4. Chronic pain syndrome. FRANCO RN Subjective Subjective Comfortable in NAD. Scheduled for Dobutamine echo today by Dr Chen Objective Last 24 Hour Vital Signs Date Time Temp Pulse Resp B/P (MAP) Pulse Ox O2 Delivery O2 Flow Rate FiO2 07/03/18 09:00 93 106/77 07/03/18 04:00 90 07/03/18 04:00 99.0 91 20 138/75 (96) 94 07/03/18 00:00 97.7 94 20 138/81 (100) 98 07/03/18 00:00 80 07/02/18 22:35 100 Nasal Cannula 2.0 28 07/02/18 22:35 100 20 Room Air 2.0 28 07/02/18 21:00 Room Air 07/02/18 20:43 90 128/74 07/02/18 20:00 91 07/02/18 20:00 98.1 90 20 128/74 (92) 98 07/02/18 16:34 97.0 80 20 159/75 (103) 97 07/02/18 15:14 81 07/02/18 12:09 73 07/02/18 12:00 97.6 80 18 111/64 (80) 96 Intake and Output 07/02/18 07/03/18 19:00 07:00 Intake Total 705 ml 600 ml Balance 705 ml 600 ml Intake Oral 480 ml IV Total 225 ml 600 ml # Voids 3 6 Laboratory Tests Test 07/03/18 05:20 White Blood Count 8.9 K/UL (4.8-10.8) # Red Blood Count 4.52 M/UL (4.20-5.40) Hemoglobin 12.7 G/DL (12.0-16.0) Hematocrit 39.7 % (37.0-47.0) Mean Corpuscular Volume 88 FL (80-99) Mean Corpuscular Hemoglobin 28.1 PG (27.0-31.0) Mean Corpuscular Hemoglobin Concent 32.0 G/DL (32.0-36.0) Red Cell Distribution Width 12.1 % (11.6-14.8) Platelet Count 233 K/UL (150-450) Mean Platelet Volume 6.9 FL (6.5-10.1) Neutrophils (%) (Auto) 72.1 % (45.0-75.0) Lymphocytes (%) (Auto) 19.0 % (20.0-45.0) L Monocytes (%) (Auto) 4.9 % (1.0-10.0) Eosinophils (%) (Auto) 3.2 % (0.0-3.0) H Basophils (%) (Auto) 0.8 % (0.0-2.0) Sodium Level 133 MMOL/L (136-145) L Potassium Level 4.5 MMOL/L (3.5-5.1) Chloride Level 100 MMOL/L (98-107) Carbon Dioxide Level 25 MMOL/L (21-32) Anion Gap 8 mmol/L (5-15) Blood Urea Nitrogen 13 mg/dL (7-18) Creatinine 0.7 MG/DL (0.55-1.30) Estimat Glomerular Filtration Rate > 60 mL/min (>60) Glucose Level 295 MG/DL (74-106) H Calcium Level 8.8 MG/DL (8.5-10.1) Objective HEAD AND NECK: Showed no JVD. LUNGS: Clear. CARDIOVASCULAR: Regular, S1 and S2 with no gallop or murmur. ABDOMEN: Soft. EXTREMITIES: No pitting edema. Buster Mena MD Jul 03, 2018 10:33
--- NOTE | 2018-07-03 11:19 | Pulmonology Progress Note ---
Assessment/Plan Assessment/Plan 1. Rule out ACS. 2. COPD. 3. Anxiety. RECOMMENDATION: I agree with admission and care. Await Lexiscan stress test. I will follow as manager stars. Agree with oxygen and pulmonary hygiene. Subjective Interval Events: Feeling well Constitutional: Reports: no symptoms HEENT: Repors: no symptoms Respiratory: Reports: no symptoms Cardiovascular: Reports: no symptoms Gastrointestinal/Abdominal: Reports: no symptoms Genitourinary: Reports: no symptoms Allergies: Coded Allergies: No Known Allergies (Unverified , 02/27/17) Objective Last 24 Hour Vital Signs Date Time Temp Pulse Resp B/P (MAP) Pulse Ox O2 Delivery O2 Flow Rate FiO2 07/03/18 09:00 93 106/77 07/03/18 09:00 Room Air 07/03/18 08:00 90 07/03/18 08:00 98.4 90 20 106/77 (87) 96 07/03/18 04:00 90 07/03/18 04:00 99.0 91 20 138/75 (96) 94 07/03/18 00:00 97.7 94 20 138/81 (100) 98 07/03/18 00:00 80 07/02/18 22:35 100 Nasal Cannula 2.0 28 07/02/18 22:35 100 20 Room Air 2.0 28 07/02/18 21:00 Room Air 07/02/18 20:43 90 128/74 07/02/18 20:00 91 07/02/18 20:00 98.1 90 20 128/74 (92) 98 07/02/18 16:34 97.0 80 20 159/75 (103) 97 07/02/18 15:14 81 07/02/18 12:09 73 07/02/18 12:00 97.6 80 18 111/64 (80) 96 Intake and Output 07/02/18 07/03/18 19:00 07:00 Intake Total 705 ml 600 ml Balance 705 ml 600 ml Intake Oral 480 ml IV Total 225 ml 600 ml # Voids 3 6 General Appearance: no acute distress HEENT: normocephalic Respiratory/Chest: lungs clear Cardiovascular: normal peripheral pulses, normal rate Abdomen: normal bowel sounds Laboratory Tests 07/03/18 05:20: White Blood Count 8.9#, Red Blood Count 4.52, Hemoglobin 12.7, Hematocrit 39.7, Mean Corpuscular Volume 88, Mean Corpuscular Hemoglobin 28.1, Mean Corpuscular Hemoglobin Concent 32.0, Red Cell Distribution Width 12.1, Platelet Count 233, Mean Platelet Volume 6.9, Neutrophils (%) (Auto) 72.1, Lymphocytes (%) (Auto) 19.0L, Monocytes (%) (Auto) 4.9, Eosinophils (%) (Auto) 3.2H, Basophils (%) ( Auto) 0.8, Sodium Level 133L, Potassium Level 4.5, Chloride Level 100, Carbon Dioxide Level 25, Anion Gap 8, Blood Urea Nitrogen 13, Creatinine 0.7, Estimat Glomerular Filtration Rate > 60, Glucose Level 295H, Calcium Level 8.8 Current Medications Medications (Trade) Dose Ordered Sig/Vinnie Route PRN Reason Start Time Stop Time Status Last Admin Dose Admin Acetaminophen (Tylenol) 650 mg Q4H PRN ORAL Mild Pain (Pain Scale 1-3) 07/01/18 21:00 07/31/18 20:59 07/02/18 20:42 Albuterol Sulfate (Proventil MDI) 2 puff Q4H PRN INH Shortness of Breath 07/02/18 15:00 08/01/18 14:59 Aspirin (ASA) 81 mg DAILY ORAL 07/02/18 09:00 08/01/18 08:59 07/03/18 09:00 Dextrose (Dextrose 50%) 25 ml Q30M PRN IV Hypoglycemia 07/01/18 21:00 07/31/18 20:59 Dextrose (Dextrose 50%) 50 ml Q30M PRN IV Hypoglycemia 07/01/18 21:00 07/31/18 20:59 Enoxaparin Sodium (Lovenox) 40 mg DAILY SUBQ 07/02/18 09:00 08/01/18 08:59 07/02/18 08:51 Famotidine (Pepcid) 40 mg DAILY ORAL 07/02/18 09:00 08/01/18 08:59 07/03/18 09:00 Insulin Aspart (NovoLOG) BEFORE MEALS AND HS SUBQ 07/02/18 06:30 08/01/18 06:29 07/03/18 05:52 Metoprolol Tartrate (Lopressor) 12.5 mg Q12HR ORAL 07/02/18 09:00 08/01/18 08:59 07/02/18 08:51 Nitroglycerin (Ntg) 0.4 mg Q5M PRN SL Prn Chest Pain 07/01/18 21:00 07/31/18 20:59 Ondansetron HCl (Zofran) 4 mg Q6H PRN IVP Nausea & Vomiting 07/01/18 21:00 07/31/18 20:59 Regadenoson (Lexiscan) 0.4 mg ONCE PRN IV FOR STRESS TEST 07/02/18 13:15 07/03/18 23:59 Sodium Chloride 1,000 ml @ 75 mls/hr [id number] IVLG 07/01/18 22:00 07/31/18 21:59 07/03/18 01:04 Preston Bansal MD Jul 03, 2018 11:19
--- NOTE | 2018-07-03 11:54 | Cardiology Report ---
APPROVED REPORT EKG Measurement Heart [id number] CO [id number] Normal sinus rhythm Anteroseptal infarct, age undetermined Abnormal ECG
[2018-07-03 12:00] VITALS: BP 139/70
--- NOTE | 2018-07-03 13:31 | Cardiology Report ---
APPROVED REPORT EXAM: Two-dimensional and M-mode echocardiogram with Doppler and color Doppler. INDICATION Chest Pain M-Mode DIMENSIONS IVSd0.9 (0.7-1.1cm)Left Atrium (MM)1.7 (1.6-4.0cm) LVDd4.0 (3.5-5.6cm)Aortic Root2.5 (2.0-3.7cm) PWd1.1 (0.7-1.1cm)Aortic Cusp Exc.1.9 (1.5-2.0cm) LVDs2.5 (2.5-4.0cm) PWs1.4 cm Normal left ventricular chamber size, systolic function and wall motion. Left ventricular ejection fraction estimated to be 55 %. No evidence of left ventricular hypertrophy. No evidence of pericardial effusion. All other cardiac chamber sizes are within normal limits. Focal aortic valve sclerosis with adequate cusp excursion. Mildly thickened mitral valve leaflets with normal excursion. Mild mitral annulus and aortic root calcification. Pulmonic valve not well visualized. Normal tricuspid valve structure. IVC is normal in size with physiological collapse. A color flow and spectral Doppler study was performed and revealed: No aortic insufficiency. No mitral regurgitation. Mitral inflow velocities indicates possible pseudo normalization pattern implying significant left ventricular diastolic dysfunction (Grade II). Mild tricuspid regurgitation. Tricuspid systolic velocities suggests peak right ventricular systolic pressure of 49 mmHg, consistent with moderate pulmonary hypertension.
[2018-07-03] MEDS ORDERED: Tubing IV Secondary IV ONE (14:59)
[2018-07-03 16:00] VITALS: BP 136/87
--- NOTE | 2018-07-03 17:12 | Diagnostic Imaging Report ---
APPROVED REPORT CPT Code: 59491 Present Symptoms Left Comments: LEFT ARM SWELLING. LEFT UPPER EXTREMITY: Venous imaging reveals patency of the internal jugular, subclavian, axillary and brachial veins. The basilic vein also patent. Doppler indicates normal spontaneous flow within these venous segments. The cephalic vein was not well visualized.
[2018-07-03] MEDS ORDERED: Albuterol 90mcg Inhaler 8gm INH PRN (17:45)
[2018-07-03] MEDS ORDERED: traMADol 50mg tab ORAL PRN (17:45)
[2018-07-03] MEDS ORDERED: Lexiscan 0.4mg/5ml syringe IV PRN (18:30)
[2018-07-03] MEDS: Albuterol ud Inhalation HHN SCH (19:50)
[2018-07-03 20:00] VITALS: BP 120/70
[2018-07-04] VITALS: BP 122/70
[2018-07-04] MEDS: Albuterol ud Inhalation HHN SCH ×4 (00:51→19:15)
[2018-07-04 04:00] VITALS: BP 126/75
[2018-07-04] MEDS: NovoLOG Insulin Flexpen SUBQ SCH ×4 (05:59→21:17)
[2018-07-04 08:00] VITALS: BP 121/93
--- NOTE | 2018-07-04 08:42 | Pulmonology Progress Note ---
Assessment/Plan Assessment/Plan 1. Rule out ACS. 2. COPD. 3. Anxiety. 4. 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 Agree with oxygen and pulmonary hygiene. Respiratory status is stable. Dr Todd will cover me 07/05/18-07/09/18 Subjective Interval Events: no new events Constitutional: Reports: no symptoms HEENT: Repors: no symptoms Respiratory: Reports: no symptoms Cardiovascular: Reports: no symptoms Gastrointestinal/Abdominal: Reports: no symptoms Genitourinary: Reports: no symptoms Allergies: Coded Allergies: No Known Allergies (Unverified , 02/27/17) Objective Last 24 Hour Vital Signs Date Time Temp Pulse Resp B/P (MAP) Pulse Ox O2 Delivery O2 Flow Rate FiO2 07/04/18 08:00 97.5 90 18 121/93 (102) 97 07/04/18 07:44 90 20 99 Room Air 21 07/04/18 07:35 Nasal Cannula 2.0 28 07/04/18 07:35 96 Room Air 21 07/04/18 07:35 90 20 96 Room Air 21 07/04/18 04:00 94 07/04/18 04:00 97.9 94 20 126/75 (92) 94 07/04/18 01:00 96 20 99 Nasal Cannula 2.0 07/04/18 00:51 88 18 97 Nasal Cannula 2.0 28 07/04/18 00:00 103 07/04/18 00:00 98.1 96 20 122/70 (87) 94 07/03/18 21:00 93 120/70 07/03/18 21:00 Room Air 07/03/18 20:09 93 20 98 Nasal Cannula 2.0 28 07/03/18 20:04 87 18 Nasal Cannula 2.0 28 07/03/18 20:03 84 18 Room Air 2.0 28 07/03/18 20:00 98.1 104 18 120/70 (87) 95 07/03/18 20:00 101 07/03/18 19:50 84 18 96 Nasal Cannula 2.0 28 07/03/18 19:50 Nasal Cannula 2.0 28 07/03/18 19:50 97 Nasal Cannula 2.0 28 07/03/18 16:00 98.2 92 20 136/87 (103) 92 07/03/18 12:00 113 07/03/18 12:00 98.1 113 20 139/70 (93) 94 07/03/18 09:00 93 106/77 07/03/18 09:00 Room Air Intake and Output 07/03/18 07/04/18 19:00 07:00 Intake Total 930 ml Balance 930 ml Intake Oral 480 ml IV Total 450 ml # Voids 2 2 General Appearance: no acute distress HEENT: normocephalic Respiratory/Chest: chest wall non-tender, lungs clear Cardiovascular: normal peripheral pulses, normal rate Abdomen: normal bowel sounds Current Medications Medications (Trade) Dose Ordered Sig/Vinnie Route PRN Reason Start Time Stop Time Status Last Admin Dose Admin Acetaminophen (Tylenol) 650 mg Q4H PRN ORAL Mild Pain (Pain Scale 1-3) 07/01/18 21:00 07/31/18 20:59 07/02/18 20:42 Albuterol Sulfate (Proventil MDI) 2 puff Q4H PRN INH Shortness of Breath 07/03/18 17:45 08/02/18 17:44 Albuterol Sulfate (Proventil) 2.5 mg Q6HRT HHN 07/03/18 19:00 07/08/18 18:59 07/04/18 07:34 Aspirin (ASA) 81 mg DAILY ORAL 07/02/18 09:00 08/01/18 08:59 07/03/18 09:00 Dextrose (Dextrose 50%) 25 ml Q30M PRN IV Hypoglycemia 07/04/18 08:30 08/03/18 08:29 Dextrose (Dextrose 50%) 50 ml Q30M PRN IV Hypoglycemia 07/04/18 08:30 08/03/18 08:29 Enoxaparin Sodium (Lovenox) 40 mg DAILY SUBQ 07/04/18 09:00 08/03/18 08:59 Famotidine (Pepcid) 40 mg DAILY ORAL 07/02/18 09:00 08/01/18 08:59 07/03/18 09:00 Insulin Aspart (NovoLOG) BEFORE MEALS AND HS SUBQ 07/03/18 21:00 08/02/18 20:59 07/04/18 05:59 Metoprolol Tartrate (Lopressor) 12.5 mg Q12HR ORAL 07/02/18 09:00 08/01/18 08:59 07/02/18 08:51 Nitroglycerin (Ntg) 0.4 mg Q5M PRN SL Prn Chest Pain 07/01/18 21:00 07/31/18 20:59 Ondansetron HCl (Zofran) 4 mg Q6H PRN IVP Nausea & Vomiting 07/01/18 21:00 07/31/18 20:59 Regadenoson (Lexiscan) 0.4 mg ONCE PRN IV STRESS TEST 07/03/18 18:30 07/05/18 23:59 Sodium Chloride 1,000 ml @ 75 mls/hr [id number] IVLG 07/01/18 22:00 07/31/18 21:59 07/04/18 04:01 Temazepam (Restoril) 7.5 mg HSPRN PRN ORAL Insomnia 07/03/18 17:45 07/10/18 17:44 07/03/18 21:05 Tramadol HCl (Ultram) 50 mg Q8H PRN ORAL For Pain 07/03/18 17:45 07/10/18 17:44 Preston Bansal MD Jul 04, 2018 08:42
--- NOTE | 2018-07-04 08:44 | Nephrology Progress Note ---
Assessment/Plan Assessment/Plan A/P 1) ACS/Chest pain- Trop I neg, [place] ruled out - Dobutamine ECHO inconclusive - defer to cardiology. 2) Anxiety- chronic per oupt mgmt 3) DVT prophylaxis- lovenox 4) SOB- per pulm. Albuterol Subjective Date patient seen: Jul 04, 2018 Time patient seen: 08:42 ROS Limited/Unobtainable: No Allergies: Coded Allergies: No Known Allergies (Unverified , 02/27/17) Subjective Patient chest pain free. Objective Last 24 Hour Vital Signs Date Time Temp Pulse Resp B/P (MAP) Pulse Ox O2 Delivery O2 Flow Rate FiO2 07/04/18 08:00 97.5 90 18 121/93 (102) 97 07/04/18 07:44 90 20 99 Room Air 21 07/04/18 07:35 Nasal Cannula 2.0 28 07/04/18 07:35 96 Room Air 21 07/04/18 07:35 90 20 96 Room Air 21 07/04/18 04:00 94 07/04/18 04:00 97.9 94 20 126/75 (92) 94 07/04/18 01:00 96 20 99 Nasal Cannula 2.0 28 07/04/18 00:51 88 18 97 Nasal Cannula 2.0 28 07/04/18 00:00 103 07/04/18 00:00 98.1 96 20 122/70 (87) 94 07/03/18 21:00 93 120/70 07/03/18 21:00 Room Air 07/03/18 20:09 93 20 98 Nasal Cannula 2.0 28 07/03/18 20:04 87 18 Nasal Cannula 2.0 28 07/03/18 20:03 84 18 Room Air 2.0 28 07/03/18 20:00 98.1 104 18 120/70 (87) 95 07/03/18 20:00 101 07/03/18 19:50 84 18 96 Nasal Cannula 2.0 28 07/03/18 19:50 Nasal Cannula 2.0 28 07/03/18 19:50 97 Nasal Cannula 2.0 28 07/03/18 16:00 98.2 92 20 136/87 (103) 92 07/03/18 12:00 113 07/03/18 12:00 98.1 113 20 139/70 (93) 94 07/03/18 09:00 93 106/77 07/03/18 09:00 Room Air Intake and Output 07/03/18 07/04/18 19:00 07:00 Intake Total 930 ml Balance 930 ml Intake Oral 480 ml IV Total 450 ml # Voids 2 2 Height (Feet): 5 Height (Inches): 7.00 Weight (Pounds): 115 General Appearance: no apparent distress, alert EENT: normal ENT inspection Neck: normal alignment, supple Cardiovascular: normal rate, regular rhythm Respiratory/Chest: lungs clear, normal breath sounds Edema: no edema noted Arm (L), no edema noted Arm (R), no edema noted Leg (L), no edema noted Leg (R), no edema noted Pedal (L), no edema noted Pedal (R), no edema noted Generalized Elian Chong MD Jul 04, 2018 08:44
[2018-07-04] MEDS: Aspirin Baby 81mg ORAL SCH (09:40)
[2018-07-04] MEDS: Enoxaparin 40mg Inj SUBQ SCH (09:41)
[2018-07-04] MEDS: Metoprolol Tartrate 12.5mg TAB ORAL SCH ×2 (09:42→21:00)
--- NOTE | 2018-07-04 11:43 | Cardiac Electrophysiology PN ---
Assessment/Plan Assessment/Plan 1. Atypical chest pain. EKG is nonischemic and she was already ruled out for myocardial infarction. The patient is already on aspirin and metoprolol. EF 55%. Dobutamine echo nondiagnostic. Lexiscan today was cancelled for risk of worsening asthma. May need transfer for cardiac cath if she agrees 2. Hypertension, stable on metoprolol 12.5 mg b.i.d. 3. Anxiety disorder. 4. Chronic pain syndrome. DW RN, Dr Chen and Dr Chong Subjective Subjective Dobutamine echo yesterday by Dr Chen was nondiagnostic. Rescheduled for Lexiscan but was not done due to concern for patients COPD Objective Last 24 Hour Vital Signs Date Time Temp Pulse Resp B/P (MAP) Pulse Ox O2 Delivery O2 Flow Rate FiO2 07/04/18 09:42 90 121/93 07/04/18 08:00 97.5 90 18 121/93 (102) 97 07/04/18 07:44 90 20 99 Room Air 21 07/04/18 07:35 Nasal Cannula 2.0 28 07/04/18 07:35 96 Room Air 21 07/04/18 07:35 90 20 96 Room Air 21 07/04/18 04:00 94 07/04/18 04:00 97.9 94 20 126/75 (92) 94 07/04/18 01:00 96 20 99 Nasal Cannula 2.0 28 07/04/18 00:51 88 18 97 Nasal Cannula 2.0 28 07/04/18 00:00 103 07/04/18 00:00 98.1 96 20 122/70 (87) 94 07/03/18 21:00 93 120/70 07/03/18 21:00 Room Air 07/03/18 20:09 93 20 98 Nasal Cannula 2.0 28 07/03/18 20:04 87 18 Nasal Cannula 2.0 28 07/03/18 20:03 84 18 Room Air 2.0 28 07/03/18 20:00 98.1 104 18 120/70 (87) 95 07/03/18 20:00 101 07/03/18 19:50 84 18 96 Nasal Cannula 2.0 28 07/03/18 19:50 Nasal Cannula 2.0 28 07/03/18 19:50 97 Nasal Cannula 2.0 28 07/03/18 16:00 98.2 92 20 136/87 (103) 92 07/03/18 12:00 113 07/03/18 12:00 98.1 113 20 139/70 (93) 94 Intake and Output 07/03/18 07/04/18 19:00 07:00 Intake Total 930 ml Balance 930 ml Intake Oral 480 ml IV Total 450 ml # Voids 2 2 Objective HEAD AND NECK: Showed no JVD. LUNGS: Clear. CARDIOVASCULAR: Regular, S1 and S2 with no gallop or murmur. ABDOMEN: Soft. EXTREMITIES: No pitting edema. Buster Mena MD Jul 04, 2018 11:43
[2018-07-04 12:00] VITALS: BP 126/76
[2018-07-04 16:00] VITALS: BP 125/73
[2018-07-04 20:00] VITALS: BP 116/67
[2018-07-05] VITALS: BP 113/67
[2018-07-05] MEDS: Albuterol ud Inhalation HHN SCH ×4 (01:39→20:00)
[2018-07-05 04:00] VITALS: BP 143/87
[2018-07-05] MEDS: NovoLOG Insulin Flexpen SUBQ SCH ×4 (06:00→20:40)
[2018-07-05 07:13] LABS: BASOPHILS % (AUTO) 0.8 % (0.0-2.0); EOSINOPHILS % (AUTO) 5.6 % (0.0-3.0); HEMATOCRIT 36.5 % (37.0-47.0); HEMOGLOBIN 11.6 G/DL (12.0-16.0); LYMPHOCYTES % (AUTO) 32.6 % (20.0-45.0); MEAN CORPUSCULAR VOLUME 87 FL (80-99); MONOCYTES % (AUTO) 8.6 % (1.0-10.0); NEUTROPHILS % (AUTO) 52.4 % (45.0-75.0); PLATELET COUNT 205 K/UL (150-450); RED BLOOD COUNT 4.18 M/UL (4.20-5.40); RED CELL DISTRIBUTION WIDTH 12.4 % (11.6-14.8); WHITE BLOOD COUNT 5.4 K/UL (4.8-10.8)
[2018-07-05 07:44] LABS: ANION GAP 11 mmol/L (5-15); BLOOD UREA NITROGEN 13 mg/dL (7-18); CALCIUM 9.3 MG/DL (8.5-10.1); CARBON DIOXIDE 24 MMOL/L (21-32); CHLORIDE 103 MMOL/L (98-107); CREATININE 0.7 MG/DL (0.55-1.30); SODIUM 138 MMOL/L (136-145)
[2018-07-05 08:00] VITALS: BP 142/76
[2018-07-05] MEDS: Enoxaparin 40mg Inj SUBQ SCH (09:00)
--- NOTE | 2018-07-05 09:04 | Nephrology Progress Note ---
Assessment/Plan Assessment/Plan A/P 1) ACS/Chest pain- Trop I neg, [place] ruled out - Dobutamine ECHO inconclusive - defer to cardiology for transfer 2) Anxiety- chronic per outpt mgmt 3) DVT prophylaxis- lovenox 4) SOB- per pulm. Albuterol Subjective Date patient seen: Jul 05, 2018 Time patient seen: 09:02 ROS Limited/Unobtainable: No Allergies: Coded Allergies: No Known Allergies (Unverified , 02/27/17) Subjective Patient chest pain free. Awaiting transfer Objective Last 24 Hour Vital Signs Date Time Temp Pulse Resp B/P (MAP) Pulse Ox O2 Delivery O2 Flow Rate FiO2 07/05/18 07:35 94 Room Air 07/05/18 07:35 Room Air 07/05/18 07:29 79 18 95 Room Air 07/05/18 07:24 88 16 94 Room Air 07/05/18 04:00 97.7 88 20 143/87 (105) 94 07/05/18 04:00 81 07/05/18 01:55 85 16 95 Room Air 07/05/18 01:38 87 18 93 Room Air 07/05/18 00:00 97.0 103 20 113/67 (82) 94 07/05/18 00:00 90 07/04/18 21:00 80 116/67 07/04/18 21:00 Room Air 07/04/18 20:00 97.7 77 20 116/67 (83) 100 07/04/18 20:00 80 07/04/18 19:29 92 18 96 Room Air 07/04/18 19:19 92 Room Air 07/04/18 19:19 Room Air 07/04/18 19:19 89 20 92 Room Air 07/04/18 16:00 98.1 83 18 125/73 (90) 98 07/04/18 16:00 85 07/04/18 13:14 89 20 97 Room Air 07/04/18 13:09 89 20 93 Room Air 07/04/18 12:00 79 07/04/18 12:00 97.7 90 18 126/76 (93) 99 07/04/18 09:42 90 121/93 Intake and Output 07/04/18 07/05/18 19:00 07:00 Intake Total 360 ml Balance 360 ml Intake Oral 360 ml # Voids 3 2 Laboratory Tests 07/05/18 06:06: White Blood Count 5.4, Red Blood Count 4.18L, Hemoglobin 11.6L, Hematocrit 36.5L , Mean Corpuscular Volume 87, Mean Corpuscular Hemoglobin 27.9, Mean Corpuscular Hemoglobin Concent 31.9L, Red Cell Distribution Width 12.4, Platelet Count 205, Mean Platelet Volume 6.9, Neutrophils (%) (Auto) 52.4, Lymphocytes (%) (Auto) 32.6, Monocytes (%) (Auto) 8.6, Eosinophils (%) (Auto) 5.6H, Basophils (%) (Auto) 0.8, Sodium Level 138, Potassium Level 4.0, Chloride Level 103, Carbon Dioxide Level 24, Anion Gap 11, Blood Urea Nitrogen 13, Creatinine 0.7, Estimat Glomerular Filtration Rate > 60, Glucose Level 318H, Calcium Level 9.3 Height (Feet): 5 Height (Inches): 7.00 Weight (Pounds): 115 General Appearance: no apparent distress, alert EENT: normal ENT inspection Neck: normal alignment, supple Cardiovascular: normal rate, regular rhythm Respiratory/Chest: lungs clear, normal breath sounds Abdomen: non tender, soft Edema: no edema noted Arm (L), no edema noted Arm (R), no edema noted Leg (L), no edema noted Leg (R), no edema noted Pedal (L), no edema noted Pedal (R), no edema noted Generalized Elian Chong MD Jul 05, 2018 09:04
[2018-07-05] MEDS: Aspirin Baby 81mg ORAL SCH (09:06)
[2018-07-05] MEDS: Metoprolol Tartrate 12.5mg TAB ORAL SCH ×3 (09:07→21:00)
[2018-07-05 12:00] VITALS: BP 143/65
--- NOTE | 2018-07-05 14:30 | Cardiac Electrophysiology PN ---
Assessment/Plan Assessment/Plan 1. Recurrent chest pain. EKG is nonischemic and she ruled out for myocardial infarction. The patient is already on aspirin and metoprolol. EF 55%. Dobutamine echo nondiagnostic. Lexiscan was cancelled by Dr Chen for risk of worsening asthma. Transfer to [facility] for cardiac cath 2. Hypertension, stable on metoprolol 12.5 mg b.i.d. 3. Anxiety disorder. 4. Chronic pain syndrome. FRANCO RN and Dr Chong Subjective Subjective No CP or SOB. Objective Last 24 Hour Vital Signs Date Time Temp Pulse Resp B/P (MAP) Pulse Ox O2 Delivery O2 Flow Rate FiO2 07/05/18 13:40 88 18 96 Room Air 21 07/05/18 13:35 92 18 93 Room Air 21 07/05/18 09:07 77 142/76 07/05/18 09:00 Room Air 07/05/18 08:00 96.8 77 18 142/76 (98) 94 07/05/18 08:00 112 07/05/18 07:35 94 Room Air 21 07/05/18 07:35 Room Air 21 07/05/18 07:29 79 18 95 Room Air 21 07/05/18 07:24 88 16 94 Room Air 21 07/05/18 04:00 97.7 88 20 143/87 (105) 94 07/05/18 04:00 81 07/05/18 01:55 85 16 95 Room Air 21 07/05/18 01:38 87 18 93 Room Air 21 07/05/18 00:00 97.0 103 20 113/67 (82) 94 07/05/18 00:00 90 07/04/18 21:00 80 116/67 07/04/18 21:00 Room Air 07/04/18 20:00 97.7 77 20 116/67 (83) 100 07/04/18 20:00 80 07/04/18 19:29 92 18 96 Room Air 21 07/04/18 19:19 92 Room Air 07/04/18 19:19 Room Air 07/04/18 19:19 89 20 92 Room Air 21 07/04/18 16:00 98.1 83 18 125/73 (90) 98 07/04/18 16:00 85 Intake and Output 07/04/18 07/05/18 19:00 07:00 Intake Total 360 ml Balance 360 ml Intake Oral 360 ml # Voids 3 2 Laboratory Tests Test 07/05/18 06:06 White Blood Count 5.4 K/UL (4.8-10.8) Red Blood Count 4.18 M/UL (4.20-5.40) L Hemoglobin 11.6 G/DL (12.0-16.0) L Hematocrit 36.5 % (37.0-47.0) L Mean Corpuscular Volume 87 FL (80-99) Mean Corpuscular Hemoglobin 27.9 PG (27.0-31.0) Mean Corpuscular Hemoglobin Concent 31.9 G/DL (32.0-36.0) L Red Cell Distribution Width 12.4 % (11.6-14.8) Platelet Count 205 K/UL (150-450) Mean Platelet Volume 6.9 FL (6.5-10.1) Neutrophils (%) (Auto) 52.4 % (45.0-75.0) Lymphocytes (%) (Auto) 32.6 % (20.0-45.0) Monocytes (%) (Auto) 8.6 % (1.0-10.0) Eosinophils (%) (Auto) 5.6 % (0.0-3.0) H Basophils (%) (Auto) 0.8 % (0.0-2.0) Sodium Level 138 MMOL/L (136-145) Potassium Level 4.0 MMOL/L (3.5-5.1) Chloride Level 103 MMOL/L (98-107) Carbon Dioxide Level 24 MMOL/L (21-32) Anion Gap 11 mmol/L (5-15) Blood Urea Nitrogen 13 mg/dL (7-18) Creatinine 0.7 MG/DL (0.55-1.30) Estimat Glomerular Filtration Rate > 60 mL/min (>60) Glucose Level 318 MG/DL (74-106) H Calcium Level 9.3 MG/DL (8.5-10.1) Objective HEAD AND NECK: No JVD. LUNGS: Clear. CARDIOVASCULAR: Regular, S1 and S2 with no gallop or murmur. ABDOMEN: Soft. EXTREMITIES: No pitting edema. Buster Mena MD Jul 05, 2018 14:30
[2018-07-05 16:00] VITALS: BP 129/73
--- NOTE | 2018-07-05 17:57 | Pulmonology Progress Note ---
Assessment/Plan Assessment/Plan Pulmonary Progress Note Assessment/Plan Assessment/Plan 1. Rule out ACS. 2. COPD. 3. Anxiety. 4. Modertae pulmonary hypertension (by ECHO) RECOMMENDATION: Agree with oxygen and pulmonary hygiene. Respiratory status is stable. Subjective Interval Events: no new events Constitutional: Reports: no symptoms HEENT: Repors: no symptoms Respiratory: Reports: no symptoms Cardiovascular: Reports: no symptoms Gastrointestinal/Abdominal: Reports: no symptoms Genitourinary: Reports: no symptoms Allergies: Coded Allergies: No Known Allergies (Unverified , 02/27/17) Objective Vital Signs Noted General Appearance: no acute distress HEENT: normocephalic Respiratory/Chest: chest wall non-tender, lungs clear Cardiovascular: normal peripheral pulses, normal rate Abdomen: normal bowel sounds Current Medications Medications (Trade) Dose Ordered Sig/Vinnie Route PRN Reason Start Time Stop Time Status Last Admin Dose Admin Acetaminophen (Tylenol) 650 mg Q4H PRN ORAL Mild Pain (Pain Scale 1-3) 07/01/18 21:00 07/31/18 20:59 07/02/18 20:42 Albuterol Sulfate (Proventil MDI) 2 puff Q4H PRN INH Shortness of Breath 07/03/18 17:45 08/02/18 17:44 Albuterol Sulfate (Proventil) 2.5 mg Q6HRT HHN 07/03/18 19:00 07/08/18 18:59 07/04/18 07:34 Aspirin (ASA) 81 mg DAILY ORAL 07/02/18 09:00 08/01/18 08:59 07/03/18 09:00 Dextrose (Dextrose 50%) 25 ml Q30M PRN IV Hypoglycemia 07/04/18 08:30 08/03/18 08:29 Dextrose (Dextrose 50%) 50 ml Q30M PRN IV Hypoglycemia 07/04/18 08:30 08/03/18 08:29 Enoxaparin Sodium (Lovenox) 40 mg DAILY SUBQ 07/04/18 09:00 08/03/18 08:59 Famotidine (Pepcid) 40 mg DAILY ORAL 07/02/18 09:00 08/01/18 08:59 07/03/18 09:00 Insulin Aspart (NovoLOG) BEFORE MEALS AND HS SUBQ 07/03/18 21:00 08/02/18 20:59 07/04/18 05:59 Metoprolol Tartrate (Lopressor) 12.5 mg Q12HR ORAL 07/02/18 09:00 08/01/18 08:59 07/02/18 08:51 Nitroglycerin (Ntg) 0.4 mg Q5M PRN SL Prn Chest Pain 07/01/18 21:00 07/31/18 20:59 Ondansetron HCl (Zofran) 4 mg Q6H PRN IVP Nausea & Vomiting 07/01/18 21:00 07/31/18 20:59 Regadenoson (Lexiscan) 0.4 mg ONCE PRN IV STRESS TEST 07/03/18 18:30 07/05/18 23:59 Sodium Chloride 1,000 ml @ 75 mls/hr [id number] IVLG 07/01/18 22:00 07/31/18 21:59 07/04/18 04:01 Temazepam (Restoril) 7.5 mg HSPRN PRN ORAL Insomnia 07/03/18 17:45 07/10/18 17:44 07/03/18 21:05 Tramadol HCl (Ultram) 50 mg Q8H PRN ORAL For Pain 07/03/18 17:45 07/10/18 17:44 Subjective ROS Limited/Unobtainable: No Allergies: Coded Allergies: No Known Allergies (Unverified , 02/27/17) Objective Last 24 Hour Vital Signs Date Time Temp Pulse Resp B/P (MAP) Pulse Ox O2 Delivery O2 Flow Rate FiO2 07/05/18 16:00 72 07/05/18 16:00 98.5 72 18 129/73 (91) 94 07/05/18 13:40 88 18 96 Room Air 21 07/05/18 13:35 92 18 93 Room Air 21 07/05/18 12:00 73 07/05/18 12:00 96.4 71 18 143/65 (91) 94 07/05/18 09:07 77 142/76 07/05/18 09:00 Room Air 07/05/18 08:00 96.8 77 18 142/76 (98) 94 07/05/18 08:00 112 07/05/18 07:35 94 Room Air 21 07/05/18 07:35 Room Air 21 07/05/18 07:29 79 18 95 Room Air 21 07/05/18 07:24 88 16 94 Room Air 21 07/05/18 04:00 97.7 88 20 143/87 (105) 94 07/05/18 04:00 81 07/05/18 01:55 85 16 95 Room Air 21 07/05/18 01:38 87 18 93 Room Air 21 07/05/18 00:00 97.0 103 20 113/67 (82) 94 07/05/18 00:00 90 07/04/18 21:00 80 116/67 07/04/18 21:00 Room Air 07/04/18 20:00 97.7 77 20 116/67 (83) 100 07/04/18 20:00 80 07/04/18 19:29 92 18 96 Room Air 21 07/04/18 19:19 92 Room Air 07/04/18 19:19 Room Air 07/04/18 19:19 89 20 92 Room Air 21 Intake and Output 07/04/18 07/05/18 19:00 07:00 Intake Total 360 ml Balance 360 ml Intake Oral 360 ml # Voids 3 2 Laboratory Tests 07/05/18 06:06: White Blood Count 5.4, Red Blood Count 4.18L, Hemoglobin 11.6L, Hematocrit 36.5L , Mean Corpuscular Volume 87, Mean Corpuscular Hemoglobin 27.9, Mean Corpuscular Hemoglobin Concent 31.9L, Red Cell Distribution Width 12.4, Platelet Count 205, Mean Platelet Volume 6.9, Neutrophils (%) (Auto) 52.4, Lymphocytes (%) (Auto) 32.6, Monocytes (%) (Auto) 8.6, Eosinophils (%) (Auto) 5.6H, Basophils (%) (Auto) 0.8, Sodium Level 138, Potassium Level 4.0, Chloride Level 103, Carbon Dioxide Level 24, Anion Gap 11, Blood Urea Nitrogen 13, Creatinine 0.7, Estimat Glomerular Filtration Rate > 60, Glucose Level 318H, Calcium Level 9.3 Current Medications Medications (Trade) Dose Ordered Sig/Vinnie Route PRN Reason Start Time Stop Time Status Last Admin Dose Admin Acetaminophen (Tylenol) 650 mg Q4H PRN ORAL Mild Pain (Pain Scale 1-3) 07/01/18 21:00 07/31/18 20:59 07/02/18 20:42 Albuterol Sulfate (Proventil MDI) 2 puff Q4H PRN INH Shortness of Breath 07/03/18 17:45 08/02/18 17:44 Albuterol Sulfate (Proventil) 2.5 mg Q6HRT HHN 07/03/18 19:00 07/08/18 18:59 07/05/18 14:11 Aspirin (ASA) 81 mg DAILY ORAL 07/04/18 09:30 08/03/18 09:29 07/05/18 09:06 Dextrose (Dextrose 50%) 25 ml Q30M PRN IV Hypoglycemia 07/04/18 08:30 08/03/18 08:29 Dextrose (Dextrose 50%) 50 ml Q30M PRN IV Hypoglycemia 07/04/18 08:30 08/03/18 08:29 Enoxaparin Sodium (Lovenox) 40 mg DAILY SUBQ 07/04/18 09:00 08/03/18 08:59 07/04/18 09:41 Famotidine (Pepcid) 40 mg DAILY ORAL 07/04/18 09:30 08/03/18 09:29 07/05/18 10:10 Insulin Aspart (NovoLOG) BEFORE MEALS AND HS SUBQ 07/03/18 21:00 08/02/18 20:59 07/05/18 16:56 Metoprolol Tartrate (Lopressor) 12.5 mg Q12HR ORAL 07/05/18 09:00 08/04/18 08:59 07/05/18 09:07 Nitroglycerin (Ntg) 0.4 mg Q5M PRN SL Prn Chest Pain 07/01/18 21:00 07/31/18 20:59 Ondansetron HCl (Zofran) 4 mg Q6H PRN IVP Nausea & Vomiting 07/01/18 21:00 07/31/18 20:59 Regadenoson (Lexiscan) 0.4 mg ONCE PRN IV STRESS TEST 07/03/18 18:30 07/05/18 23:59 Temazepam (Restoril) 7.5 mg HSPRN PRN ORAL Insomnia 07/03/18 17:45 07/10/18 17:44 07/05/18 10:14 Tramadol HCl (Ultram) 50 mg Q8H PRN ORAL For Pain 07/03/18 17:45 07/10/18 17:44 Nicolas Li MD Jul 05, 2018 17:57
[2018-07-05 20:00] VITALS: BP 128/80
[2018-07-06] VITALS: BP 118/76
[2018-07-06] MEDS: Albuterol ud Inhalation HHN SCH ×4 (01:51→19:44)
[2018-07-06 04:00] VITALS: BP 129/74
[2018-07-06] MEDS: NovoLOG Insulin Flexpen SUBQ SCH ×4 (05:46→20:55)
[2018-07-06 08:00] VITALS: BP 122/67
[2018-07-06] MEDS: Enoxaparin 40mg Inj SUBQ SCH (08:45)
[2018-07-06] MEDS: Aspirin Baby 81mg ORAL SCH (08:45)
[2018-07-06] MEDS: Metoprolol Tartrate 12.5mg TAB ORAL SCH ×2 (08:45→20:52)
--- NOTE | 2018-07-06 08:51 | Nephrology Progress Note ---
Assessment/Plan Assessment/Plan A/P 1) ACS/Chest pain- Trop I neg, [place] ruled out - awaiting transfer to [facility] for heart catherization 2) Anxiety- chronic per outpt mgmt 3) DVT prophylaxis- SCDs 4) SOB- per pulm. Albuterol Subjective Date patient seen: Jul 06, 2018 Time patient seen: 08:49 ROS Limited/Unobtainable: No Allergies: Coded Allergies: No Known Allergies (Unverified , 02/27/17) Subjective Patiient awaiting trasfer to [facility] Objective Last 24 Hour Vital Signs Date Time Temp Pulse Resp B/P (MAP) Pulse Ox O2 Delivery O2 Flow Rate FiO2 07/06/18 08:45 85 122/67 07/06/18 07:20 77 16 99 Room Air 21 07/06/18 07:11 Room Air 07/06/18 07:10 94 Room Air 21 07/06/18 07:10 78 16 95 Room Air 21 07/06/18 04:00 75 07/06/18 04:00 97.8 80 17 129/74 (92) 95 07/06/18 02:04 76 18 98 Room Air 21 07/06/18 01:52 82 18 97 Room Air 21 07/06/18 00:00 97.9 74 18 118/76 (90) 97 07/06/18 00:00 72 07/05/18 21:00 Room Air 07/05/18 21:00 75 128/80 07/05/18 20:10 77 18 99 Room Air 21 07/05/18 20:00 78 18 94 Room Air 21 07/05/18 20:00 Room Air 21 07/05/18 20:00 97.7 75 18 128/80 (96) 95 07/05/18 20:00 94 Room Air 21 07/05/18 20:00 77 07/05/18 16:00 72 07/05/18 16:00 98.5 72 18 129/73 (91) 94 07/05/18 13:40 88 18 96 Room Air 21 07/05/18 13:35 92 18 93 Room Air 21 07/05/18 12:00 73 07/05/18 12:00 96.4 71 18 143/65 (91) 94 07/05/18 09:07 77 142/76 07/05/18 09:00 Room Air Intake and Output 07/05/18 07/06/18 18:59 06:59 Intake Total 520 ml 240 ml Balance 520 ml 240 ml Intake Oral 520 ml 240 ml # Voids 3 1 Height (Feet): 5 Height (Inches): 7.00 Weight (Pounds): 115 General Appearance: no apparent distress, alert EENT: normal ENT inspection Neck: normal alignment, supple Cardiovascular: normal rate, regular rhythm Respiratory/Chest: lungs clear, normal breath sounds Abdomen: non tender, soft Edema: no edema noted Arm (L), no edema noted Arm (R), no edema noted Leg (L), no edema noted Leg (R), no edema noted Pedal (L), no edema noted Pedal (R), no edema noted Generalized Elian Chong MD Jul 06, 2018 08:51
[2018-07-06 12:00] VITALS: BP 140/80
--- NOTE | 2018-07-06 13:06 | Pulmonology Progress Note ---
Assessment/Plan Assessment/Plan Pulmonary Progress Note Assessment/Plan Assessment/Plan 1. Rule out ACS. Troponins negative 2. COPD. 3. Anxiety. 4. Moderate pulmonary hypertension (by ECHO), RV SP 49 5. Diastolic dysfunction, LVEF 55 RECOMMENDATION: Agree with oxygen and pulmonary hygiene. Respiratory status is stable. Awaiting TF to [facility] for Cardiac Cath Subjective Interval Events: no new events Constitutional: Reports: no symptoms HEENT: Repors: no symptoms Respiratory: Reports: no symptoms Cardiovascular: Reports: no symptoms Gastrointestinal/Abdominal: Reports: no symptoms Genitourinary: Reports: no symptoms Allergies: Coded Allergies: No Known Allergies (Unverified , 02/27/17) Objective Vital Signs Noted General Appearance: no acute distress HEENT: normocephalic Respiratory/Chest: chest wall non-tender, lungs clear Cardiovascular: normal peripheral pulses, normal rate Abdomen: normal bowel sounds Current Medications Medications (Trade) Dose Ordered Sig/Vinnie Route PRN Reason Start Time Stop Time Status Last Admin Dose Admin Acetaminophen (Tylenol) 650 mg Q4H PRN ORAL Mild Pain (Pain Scale 1-3) 07/01/18 21:00 07/31/18 20:59 07/02/18 20:42 Albuterol Sulfate (Proventil MDI) 2 puff Q4H PRN INH Shortness of Breath 07/03/18 17:45 08/02/18 17:44 Albuterol Sulfate (Proventil) 2.5 mg Q6HRT HHN 07/03/18 19:00 07/08/18 18:59 07/04/18 07:34 Aspirin (ASA) 81 mg DAILY ORAL 07/02/18 09:00 08/01/18 08:59 07/03/18 09:00 Dextrose (Dextrose 50%) 25 ml Q30M PRN IV Hypoglycemia 07/04/18 08:30 08/03/18 08:29 Dextrose (Dextrose 50%) 50 ml Q30M PRN IV Hypoglycemia 07/04/18 08:30 08/03/18 08:29 Enoxaparin Sodium (Lovenox) 40 mg DAILY SUBQ 07/04/18 09:00 08/03/18 08:59 Famotidine (Pepcid) 40 mg DAILY ORAL 07/02/18 09:00 08/01/18 08:59 07/03/18 09:00 Insulin Aspart (NovoLOG) BEFORE MEALS AND HS SUBQ 07/03/18 21:00 08/02/18 20:59 07/04/18 05:59 Metoprolol Tartrate (Lopressor) 12.5 mg Q12HR ORAL 07/02/18 09:00 08/01/18 08:59 07/02/18 08:51 Nitroglycerin (Ntg) 0.4 mg Q5M PRN SL Prn Chest Pain 07/01/18 21:00 07/31/18 20:59 Ondansetron HCl (Zofran) 4 mg Q6H PRN IVP Nausea & Vomiting 07/01/18 21:00 07/31/18 20:59 Regadenoson (Lexiscan) 0.4 mg ONCE PRN IV STRESS TEST 07/03/18 18:30 07/05/18 23:59 Sodium Chloride 1,000 ml @ 75 mls/hr [id number] IVLG 07/01/18 22:00 07/31/18 21:59 07/04/18 04:01 Temazepam (Restoril) 7.5 mg HSPRN PRN ORAL Insomnia 07/03/18 17:45 07/10/18 17:44 07/03/18 21:05 Tramadol HCl (Ultram) 50 mg Q8H PRN ORAL For Pain 07/03/18 17:45 07/10/18 17:44 Subjective ROS Limited/Unobtainable: No Allergies: Coded Allergies: No Known Allergies (Unverified , 02/27/17) Objective Last 24 Hour Vital Signs Date Time Temp Pulse Resp B/P (MAP) Pulse Ox O2 Delivery O2 Flow Rate FiO2 07/06/18 12:57 74 16 99 Room Air 21 07/06/18 12:47 77 20 92 Room Air 21 07/06/18 09:00 Room Air 07/06/18 08:45 85 122/67 07/06/18 08:00 98.1 85 18 122/67 (85) 95 07/06/18 08:00 89 07/06/18 07:20 77 16 99 Room Air 21 07/06/18 07:11 Room Air 07/06/18 07:10 94 Room Air 21 07/06/18 07:10 78 16 95 Room Air 21 07/06/18 04:00 75 12/30/18 04:00 97.8 80 17 129/74 (92) 95 07/06/18 02:04 76 18 98 Room Air 21 07/06/18 01:52 82 18 97 Room Air 21 07/06/18 00:00 97.9 74 18 118/76 (90) 97 07/06/18 00:00 72 07/05/18 21:00 Room Air 07/05/18 21:00 75 128/80 07/05/18 20:10 77 18 99 Room Air 21 07/05/18 20:00 78 18 94 Room Air 21 07/05/18 20:00 Room Air 21 07/05/18 20:00 97.7 75 18 128/80 (96) 95 07/05/18 20:00 94 Room Air 21 07/05/18 20:00 77 07/05/18 16:00 72 07/05/18 16:00 98.5 72 18 129/73 (91) 94 07/05/18 13:40 88 18 96 Room Air 21 07/05/18 13:35 92 18 93 Room Air 21 Intake and Output 07/05/18 07/06/18 19:00 07:00 Intake Total 520 ml 240 ml Balance 520 ml 240 ml Intake Oral 520 ml 240 ml # Voids 3 1 Current Medications Medications (Trade) Dose Ordered Sig/Vinnie Route PRN Reason Start Time Stop Time Status Last Admin Dose Admin Acetaminophen (Tylenol) 650 mg Q4H PRN ORAL Mild Pain (Pain Scale 1-3) 07/01/18 21:00 07/31/18 20:59 07/02/18 20:42 Albuterol Sulfate (Proventil MDI) 2 puff Q4H PRN INH Shortness of Breath 07/03/18 17:45 08/02/18 17:44 Albuterol Sulfate (Proventil) 2.5 mg Q6HRT HHN 07/03/18 19:00 07/08/18 18:59 07/06/18 12:47 Aspirin (ASA) 81 mg DAILY ORAL 07/04/18 09:30 08/03/18 09:29 07/06/18 08:45 Dextrose (Dextrose 50%) 25 ml Q30M PRN IV Hypoglycemia 07/04/18 08:30 08/03/18 08:29 Dextrose (Dextrose 50%) 50 ml Q30M PRN IV Hypoglycemia 07/04/18 08:30 08/03/18 08:29 Famotidine (Pepcid) 40 mg DAILY ORAL 07/04/18 09:30 08/03/18 09:29 07/06/18 08:44 Insulin Aspart (NovoLOG) BEFORE MEALS AND HS SUBQ 07/03/18 21:00 08/02/18 20:59 07/06/18 11:54 Metoprolol Tartrate (Lopressor) 12.5 mg Q12HR ORAL 07/05/18 09:00 08/04/18 08:59 07/06/18 08:45 Nitroglycerin (Ntg) 0.4 mg Q5M PRN SL Prn Chest Pain 07/01/18 21:00 07/31/18 20:59 Ondansetron HCl (Zofran) 4 mg Q6H PRN IVP Nausea & Vomiting 07/01/18 21:00 07/31/18 20:59 Temazepam (Restoril) 7.5 mg HSPRN PRN ORAL Insomnia 07/03/18 17:45 07/10/18 17:44 07/05/18 20:39 Tramadol HCl (Ultram) 50 mg Q8H PRN ORAL For Pain 07/03/18 17:45 07/10/18 17:44 07/06/18 10:28 Nicolas Li MD Jul 06, 2018 13:06
[2018-07-06 16:00] VITALS: BP 122/69
[2018-07-06 20:00] VITALS: BP 158/75
[2018-07-07] VITALS: BP 125/76
[2018-07-07] MEDS: Albuterol ud Inhalation HHN SCH ×2 (01:02→07:46)
[2018-07-07 04:00] VITALS: BP 96/66
[2018-07-07] MEDS: NovoLOG Insulin Flexpen SUBQ SCH ×2 (06:51→11:51)
[2018-07-07 08:00] VITALS: BP 117/70
--- NOTE | 2018-07-07 08:21 | Nephrology Progress Note ---
Assessment/Plan Assessment/Plan A/P 1) ACS/Chest pain- Trop I neg, [place] ruled out - awaiting transfer to [facility] for heart catherization - patient may decide on leaving today if no transfer 2) Anxiety- chronic per outpt mgmt 3) DVT prophylaxis- SCDs 4) SOB- per pulm. Albuterol 5) DM- add long acting insulin Subjective Date patient seen: Jul 07, 2018 Time patient seen: 08:20 ROS Limited/Unobtainable: No Allergies: Coded Allergies: No Known Allergies (Unverified , 02/27/17) Subjective Patiient awaiting trasfer to [facility] for heart cath Objective Last 24 Hour Vital Signs Date Time Temp Pulse Resp B/P (MAP) Pulse Ox O2 Delivery O2 Flow Rate FiO2 07/07/18 08:00 98.6 83 18 117/70 (86) 94 07/07/18 07:56 82 17 98 Room Air 21 07/07/18 07:46 Room Air 21 07/07/18 07:46 96 Room Air 21 07/07/18 07:46 82 16 96 Room Air 21 07/07/18 04:00 97.9 88 18 96/66 (76) 18 07/07/18 04:00 88 07/07/18 01:12 72 16 99 Room Air 21 07/07/18 01:02 77 20 93 Room Air 21 07/07/18 00:00 71 07/07/18 00:00 98.6 18 125/76 (92) 96 07/06/18 21:00 Room Air 07/06/18 20:52 69 158/75 07/06/18 20:00 65 07/06/18 20:00 98.3 69 17 158/75 (102) 97 07/06/18 19:53 68 16 98 Room Air 21 07/06/18 19:43 70 20 92 Room Air 21 07/06/18 19:41 94 Room Air 21 07/06/18 19:41 Room Air 21 07/06/18 16:00 97.5 67 18 122/69 (86) 94 07/06/18 16:00 60 07/06/18 12:57 74 16 99 Room Air 21 07/06/18 12:47 77 20 92 Room Air 21 07/06/18 12:00 62 07/06/18 12:00 97.0 75 18 140/80 (100) 95 07/06/18 09:00 Room Air 07/06/18 08:45 85 122/67 Intake and Output 07/06/18 07/07/18 18:59 06:59 Intake Total 360 ml Balance 360 ml Intake Oral 360 ml # Voids 3 Laboratory Tests 07/07/18 07:47: Sodium Level [Pending], Potassium Level [Pending], Chloride Level [Pending], Carbon Dioxide Level [Pending], Blood Urea Nitrogen [Pending], Creatinine [ Pending], Estimat Glomerular Filtration Rate [Pending], Glucose Level [Pending] , Calcium Level [Pending] Height (Feet): 5 Height (Inches): 7.00 Weight (Pounds): 115 General Appearance: no apparent distress, alert EENT: normal ENT inspection Neck: normal alignment, supple Cardiovascular: normal rate, regular rhythm Respiratory/Chest: lungs clear, normal breath sounds Abdomen: non tender, soft Edema: no edema noted Arm (L), no edema noted Arm (R), no edema noted Leg (L), no edema noted Leg (R), no edema noted Pedal (L), no edema noted Pedal (R), no edema noted Generalized Elian Chong MD Jul 07, 2018 08:21
[2018-07-07 08:44] LABS: BLOOD UREA NITROGEN 10 mg/dL (7-18); CHLORIDE 101 MMOL/L (98-107)
[2018-07-07 08:45] LABS: ANION GAP 11 mmol/L (5-15); CALCIUM 9.7 MG/DL (8.5-10.1); CARBON DIOXIDE 27 MMOL/L (21-32); CREATININE 0.7 MG/DL (0.55-1.30); POTASSIUM 3.8 MMOL/L (3.5-5.1); SODIUM 139 MMOL/L (136-145)
[2018-07-07] MEDS: Metoprolol Tartrate 12.5mg TAB ORAL SCH (08:59)
[2018-07-07] MEDS: Aspirin Baby 81mg ORAL SCH (08:59)
[2018-07-07] MEDS ORDERED: Levemir Flexpen SUBQ SCH (10:00)
--- NOTE | 2018-07-07 10:12 | Cardiac Electrophysiology PN ---
Assessment/Plan Assessment/Plan 1. Recurrent chest pain. EKG is nonischemic and she ruled out for myocardial infarction. The patient is already on aspirin and metoprolol. EF 55%. Dobutamine echo nondiagnostic. Lexiscan was cancelled by Dr Chen for risk of worsening asthma. Still awaiting [facility] Patient now wants to go home and get it done as out patient. No CP or SOB 2. Hypertension, stable on metoprolol 12.5 mg b.i.d. 3. Anxiety disorder. 4. Chronic pain syndrome. FRANCO RN and Dr Chong Subjective Subjective No CP or SOB.Wants to go home and get cardiac cath as out patient Objective Last 24 Hour Vital Signs Date Time Temp Pulse Resp B/P (MAP) Pulse Ox O2 Delivery O2 Flow Rate FiO2 07/07/18 08:59 83 117/70 07/07/18 08:00 98.6 83 18 117/70 (86) 94 07/07/18 07:56 82 17 98 Room Air 21 07/07/18 07:46 Room Air 21 07/07/18 07:46 96 Room Air 21 07/07/18 07:46 82 16 96 Room Air 21 07/07/18 04:00 97.9 88 18 96/66 (76) 18 07/07/18 04:00 88 07/07/18 01:12 72 16 99 Room Air 21 07/07/18 01:02 77 20 93 Room Air 21 07/07/18 00:00 71 07/07/18 00:00 98.6 18 125/76 (92) 96 07/06/18 21:00 Room Air 07/06/18 20:52 69 158/75 07/06/18 20:00 65 07/06/18 20:00 98.3 69 17 158/75 (102) 97 07/06/18 19:53 68 16 98 Room Air 21 07/06/18 19:43 70 20 92 Room Air 21 07/06/18 19:41 94 Room Air 21 07/06/18 19:41 Room Air 21 07/06/18 16:00 97.5 67 18 122/69 (86) 94 07/06/18 16:00 60 07/06/18 12:57 74 16 99 Room Air 21 07/06/18 12:47 77 20 92 Room Air 21 07/06/18 12:00 62 07/06/18 12:00 97.0 75 18 140/80 (100) 95 Intake and Output 07/06/18 07/07/18 18:59 06:59 Intake Total 360 ml Balance 360 ml Intake Oral 360 ml # Voids 3 Laboratory Tests Test 07/07/18 07:47 Sodium Level 139 MMOL/L (136-145) Potassium Level 3.8 MMOL/L (3.5-5.1) Chloride Level 101 MMOL/L (98-107) Carbon Dioxide Level 27 MMOL/L (21-32) Anion Gap 11 mmol/L (5-15) Blood Urea Nitrogen 10 mg/dL (7-18) Creatinine 0.7 MG/DL (0.55-1.30) Estimat Glomerular Filtration Rate > 60 mL/min (>60) Glucose Level 362 MG/DL (74-106) H Calcium Level 9.7 MG/DL (8.5-10.1) Objective HEAD AND NECK: No JVD. LUNGS: Clear. CARDIOVASCULAR: Regular, S1 and S2 with no gallop or murmur. ABDOMEN: Soft. EXTREMITIES: No pitting edema. Buster Mena MD Jul 07, 2018 10:12
[2018-07-07 12:00] VITALS: BP 127/67
--- NOTE | 2018-07-07 15:51 | Pulmonology Progress Note ---
Assessment/Plan Assessment/Plan Assessment/Plan 1. cardiology stable 2. COPD. 3. Anxiety. 4. Moderate pulmonary hypertension (by ECHO), RV SP 49 5. Diastolic dysfunction, LVEF 55 PLAN care noted and reviewed ok to dc monitor pulmonary pressures care noted and reviewed impression, plan, and exam edited and reviewed in detail care discussed with RN Subjective Allergies: Coded Allergies: No Known Allergies (Unverified , 02/27/17) Subjective doing well stable for discharge care noted and reviewed Objective Last 24 Hour Vital Signs Date Time Temp Pulse Resp B/P (MAP) Pulse Ox O2 Delivery O2 Flow Rate FiO2 07/07/18 12:00 97.3 75 20 127/67 (87) 97 07/07/18 09:00 Room Air 07/07/18 08:59 83 117/70 07/07/18 08:00 89 07/07/18 08:00 98.6 83 18 117/70 (86) 94 07/07/18 07:56 82 17 98 Room Air 21 07/07/18 07:46 Room Air 21 07/07/18 07:46 96 Room Air 21 07/07/18 07:46 82 16 96 Room Air 21 07/07/18 04:00 97.9 88 18 96/66 (76) 18 07/07/18 04:00 88 07/07/18 01:12 72 16 99 Room Air 21 07/07/18 01:02 77 20 93 Room Air 21 07/07/18 00:00 71 07/07/18 00:00 98.6 18 125/76 (92) 96 07/06/18 21:00 Room Air 07/06/18 20:52 69 158/75 07/06/18 20:00 65 07/06/18 20:00 98.3 69 17 158/75 (102) 97 07/06/18 19:53 68 16 98 Room Air 21 07/06/18 19:43 70 20 92 Room Air 21 07/06/18 19:41 94 Room Air 21 07/06/18 19:41 Room Air 21 07/06/18 16:00 97.5 67 18 122/69 (86) 94 07/06/18 16:00 60 Intake and Output 07/06/18 07/07/18 19:00 07:00 Intake Total 360 ml Balance 360 ml Intake Oral 360 ml # Voids 3 Objective WDWN NAD clear breath sounds bilaterally without rhonchi or wheeze [id number] without MRG NABS nontender no HSM no CCE nonfocal Laboratory Tests 07/07/18 07:47: Sodium Level 139, Potassium Level 3.8, Chloride Level 101, Carbon Dioxide Level 27, Anion Gap 11, Blood Urea Nitrogen 10, Creatinine 0.7, Estimat Glomerular Filtration Rate > 60, Glucose Level 362H, Calcium Level 9.7 Doron Villasenor MD Jul 07, 2018 15:51
--- NOTE | 2018-07-09 13:12 | Discharge Summary ---
Discharge Summary Discharge Summary _ DATE OF ADMISSION: 07/01/2018 DATE OF DISCHARGE: 07/07/2018 DISCHARGED BY: Dr. Chong REASON FOR ADMISSION: 49 years old female with past medical history of hypertension, diabetes mellitus , asthma, anxiety disorder, presented with new onset of chest pain. Patient reported pressure-like chest pain along with pins and needles in her chest. She denied radiation of the pain. Patient had this feeling in the past , resulting from her anxiety. At this time chest pain started about 2-3 days ago. She denied nausea ,vomiting ,diarrhea. Upon evaluation vital signs were stable. Laboratory workup revealed no leukocytosis, stable hemoglobin and hematocrit . Troponin was negative. Pro BNP 14. EKG revealed normal sinus rhythm , no acute ischemic changes. BUN 19, creatinine 0.7. Glucose 306. Chest x-ray revealed findings suggestive of COPD. Patient admitted with diagnoses of chest pain ,rule out acute coronary syndrome ,diabetes mellitus, hypertension, CONSULTANTS: first aid trainer Dr. Kinney pulmonary Dr. Bansal HOSPITAL COURSE: Patient admitted to telemetry floor. Head Usher closely followed. Patient started on antiplatelet therapy with aspirin and beta-blockade. Echocardiogram revealed preserved ejection fraction 55%. No evidence of left ventricular hypertrophy. No evidence of pericardial effusion. Right ventricular systolic pressure of 49 consistent with moderate pulmonary hypertension. Evidence of grade 2 diastolic dysfunction. Serial troponin were negative. EKG was nonischemic. Patient was ruled out for myocardial infarction. Dobutamine Echo was nondiagnostic, given that the patient could not achieve the target heart rate. Lexiscan was canceled by Dr. Chen in fear for worsening asthma. Supplemental oxygen provided as needed to keep pulse oximetry above 92% , pulmonary toilet was on standby as needed. Patient was placed on the waiting list for transfer to [facility] for cardiac catheterization . However, patient wanted to go home . Patient denied chest pain or shortness of breath. Head Usher cleared patient for discharge with outpatient follow-up . Blood pressure was managed with beta-pushpa, remained stable. Patient noted to have left arm swelling. Venous duplex of left upper extremity revealed no evidence of DVT. Chest pain was likely secondary to anxiety disorder . However patient will benefit from outpatient cardiac catheterization, given history of hypertension . DVT prophylaxis provided. Blood sugar was managed with marielena-acting Levemir and sliding scale of insulin as needed. Patient clinically stabilized and was ready fro discharge home with outpatient follow up with first aid trainer. FINAL DIAGNOSES: Recurrent chest pain , probably due to anxiety disorder Anxiety disorder Hypertension Diabetes mellitus COPD Moderate pulmonary hypertension Diastolic dysfunction DISCHARGE MEDICATIONS: See Medication Reconciliation list. DISCHARGE INSTRUCTIONS: Patient was discharged home . Follow up with primary care provider in one week. I have been assigned to dictate discharge summary for this account. I was not involved in the patient's management. Gabrielle Cuba NP Jul 09, 2018 13:12
== END 2018-07-07 12:34 | disposition home or self-care (01) | DRG 203 ==
LOC: EMR 19:34 → 2E 19:55 → EDBEDREQ 20:21 → UNDODISIN 07-03 15:00 → 2E 07-04 12:36
DX: R07.89 Other chest pain (principal); I27.20 Pulmonary hypertension, unspecified; E11.9 Type 2 diabetes mellitus without complications; F41.9 Anxiety disorder, unspecified; I10 Essential (primary) hypertension; J44.9 Chronic obstructive pulmonary disease, unspecified; I51.89 Other ill-defined heart diseases; G89.4 Chronic pain syndrome; Z79.82 Long term (current) use of aspirin; Z79.4 Long term (current) use of insulin; Z87.891 Personal history of nicotine dependence
CPT/HCPCS: 36415; 71045; 80048; 80053; 82550; 82962; 83880; 84484; 85007; 85025; 85610; 85730; 93005; 93017; 93306; 93971; 94640; 94664; 94760; 96374; 96375; 99285; J1815; J2405; J2785; S5561